=== PATIENT | male | born 1990 | race Caucasian/White ===

== ENCOUNTER 2018-05-15 19:23 | Emergency (ER) | payer MEDICAID, SELFPAY ==
[2018-05-15 19:24] VITALS: BP 126/76; PULSE 106; RESP 16; TEMP 37; O2SAT 100; BMI 21.1
--- NOTE | 2018-05-15 19:30 | RAD_ITS ---
STUDY: X-RAY - LEFT KNEE REASON FOR EXAM: Male, 28 years old. Left knee pain status post fall TECHNIQUE: 4 view(s) of the knee. COMPARISON: None. FINDINGS: Normal visualized distal femur. Normal visualized proximal tibia and fibula. Normal proximal tibiofibular articulation. Normal medial femorotibial compartment. Normal lateral femorotibial compartment. Normal patellofemoral articulation. The soft tissue structures are unremarkable. RAD/Knee 4 or More Views IMPRESSION: Normal x-ray examination of the knee. Electronically Signed: Obinna Erickson MD at 19:55 EST , Service support ,
--- NOTE | 2018-05-15 20:18 | ED.DCSUM_ITS ---
- ER Visit Summary Date of Service: 05/15/18 Chief Complaint: Knee pain History of Present Illness: The patient is a 28 M with left knee pain. He stepped down from a curb and felt something pop in his left knee. Complains of anterior knee pain. No other injuries or complaints. Physical Examination: Anterior tenderness to left knee. No laxity or deformity. Good extension. Neurovascular intact distally. Skin appears normal. Test Results: X-rays negative. Emergency Department Course and Treatment: Patient has a knee sprain. Treated with anti-inflammatories, ice, crutches. Follow-up with primary care. Treatment Plan: As above Disposition: Discharge Impression: 1. Left knee sprain This note was generated with [employer] dictation software. It may contain incorrect words, spelling, and punctuation that were not noted in review of the chart prior to signing ED Disposition - Plan for ED Patient: Chief Complaint: Lower Extremity Injury Referrals: NOT,DEFINED [Primary Care Provider] -
--- NOTE | 2018-05-15 20:19 | ED.DEP ---
ED Disposition - Plan for ED Patient: Chief Complaint: Lower Extremity Injury Instructions: ED Sprain Knee Prescriptions: Naproxen [Naprosyn] 500 mg PO BID PRN #20 tab Referrals: Margarito Herron MD [STAFF PHYSICIAN] - As Needed
[2018-05-15] MEDS: Naproxen 500 MG Tablet PO (20:48)
--- OUTSIDE RECORDS SUMMARY | 2018-07-20 17:08 | XMS RPT_ITS ---
:1990 Author Organization [facility] Care Team Providers Name Role Phone Nathen Srinivasan Attending Unavailable Primay Care Physicia, No Primary Care Unavailable PROBLEMS PROBLEMS No Problem Records FoundPROCEDURES PROCEDURES No Procedure Records FoundRESULTS RESULTS EMERGENCY DEPARTMENT Observed: 05/15/2018 Status: F Source: [place] SUMMARY 11:50 PM [facility] REPOSITORY [facility] Medical Records Department [address] [place] [address] Emergency Department Summary 05/15/182017 MR#: [id number] Acct: [id number] Name: MESERET PIERRE Rep #: [id number] : 1990 28 From: Nathen Srinivasan MD PCP: Care Physician, No Primary Status: DEP ER - ER Visit Summary Date of Service: 05/15/18 Chief Complaint: Knee pain History of Present Illness: The patient is a 28 M with left knee pain. He stepped down from a curb and felt something pop in his left knee. Complains of anterior knee pain. No other injuries or complaints. Physical Examination: Anterior tenderness to left knee. No laxity or deformity. Good extension. Neurovascular intact distally. Skin appears normal. Test Results: X-rays negative. Emergency Department Course and Treatment: Patient has a knee sprain. Treated with anti-inflammatories, ice, crutches. Follow-up with primary care. Treatment Plan: As above Disposition: Discharge Impression: 1. Left knee sprain This note was generated with [employer] dictation software. It may contain incorrect words, spelling, and punctuation that were not noted in review of the chart prior to signing ED Disposition - Plan for ED Patient: Chief Complaint: Lower Extremity Injury Referrals: NOT,DEFINED [Primary Care Provider] - What to do if you have Problems For any increased pain, shortness of breath, bleeding, nausea or vomiting, chest pain, or any unexpected problems, contact your Primary Care Provider. Call [facility] ([phone]) or report to the closest Emergency Room. Call 911 if necessary. 05/15/182349 <Electronically signed by Nathen Srinivasan MD> Date Nathen Srinivasan MD Cosigner Signature (If Indicated): Date CC: No Primary Care Physician DISCHARGE INSTRUCTION Observed: 05/15/2018 Status: F Source: [place] 11:50 PM [facility] REPOSITORY [facility] Medical Records Department [address] [place] [address] Discharge Instruction 05/15/182018 MR#: [id number] Acct: [id number] Name: MESERET PIERRE Rep #: [id number] : 1990 28 From: Nathen Srinivasan MD PCP: Care Physician, No Primary Status: DEP ER ED Disposition - Plan for ED Patient: Chief Complaint: Lower Extremity Injury Instructions: ED Sprain Knee Prescriptions: Naproxen [Naprosyn] 500 mg PO BID PRN #20 tab Referrals: Margarito Herron MD [STAFF PHYSICIAN] - As Needed What to do if you have Problems For any increased pain, shortness of breath, bleeding, nausea or vomiting, chest pain, or any unexpected problems, contact your Primary Care Provider. Call [facility] ([phone]) or report to the closest Emergency Room. Call 911 if necessary. 05/15/182349 <Electronically signed by Nathen Srinivasan MD> Date Nathen Srinivasan MD Cosigner Signature (If Indicated): Date CC: No Primary Care Physician KNEE 4 OR MORE Observed: 05/15/2018 Status: F Source: [place] VIEWS 7:29 PM [facility] REPOSITORY [facility] Imaging Services [address] [place] [address] Knee 4 or More Views MR#: [id number] Acct: [id number] Name: MESERET PIERRE Rep #: [id number] : 1990 M 28 From: Obinna Erickson MD PCP: NOT, DEFINED Status: PRE ER Study: Knee 4 or More Views Date of Exam: 05/15/18 Exam# [id number] Ordering Dr: Nathen Srinivasan MD STUDY: X-RAY - LEFT KNEE REASON FOR EXAM: Male, 28 years old. Left knee pain status post fall TECHNIQUE: 4 view(s) of the knee. COMPARISON: None. FINDINGS: Normal visualized distal femur. Normal visualized proximal tibia and fibula. Normal proximal tibiofibular articulation. Normal medial femorotibial compartment. Normal lateral femorotibial compartment. Normal patellofemoral articulation. The soft tissue structures are unremarkable. RAD/Knee 4 or More Views IMPRESSION: Normal x-ray examination of the knee. Electronically Signed: Obinna Erickson MD at 19:55 EST , Service support , CC: DEFINED NOT; Nathen Srinivasan MD Rn Testing: Signed ALLERGIES ALLERGIES DATE TYPE / CODE NAME / CODE REACTION SEVERITY SOURCE 05/15/2018 Drug No Known Unknown [facility] Allergy/4160 Allergies/F00 [facility] [address](SNOMED [id number](RXNOR Repository CT) M) ENCOUNTERS ENCOUNTERS ADMIT/DISCHARGE ACCOUNT ADMITTING ENCOUNTER LOCATION SOURCE NUMBER CLASS 05/15/2018/ [id number] Emergency Myra [place] [facility] ing:ED Repository PAYERS PAYERS ENCOUNTER GUARANTOR PAYER SUBSCRIBER SOURCE 05/15/2018 [place] Primary MESERET Renteria DILDINESALVATION Insurance:[facility] DILDINEDOB: [facility] [facility] [phone] Number: Repository [id number]: [phone] [phone] () Date:[id number] [id number]: 05/15/2018 Secondary NOT GIVENUNK [place] Insurance:SELF PAY [facility] Number: Effective Repository Date:2018-05-15
== END 2018-05-15 20:54 | disposition home or self-care (01) ==
LOC: ED 20:34
PROVIDERS: Emergency Provider Emergency Medicine
DX: S83.92XA Sprain of unspecified site of left knee, initial encounter (principal); X58.XXXA Exposure to other specified factors, initial encounter; Y93.01 Activity, walking, marching and hiking; Y92.89 Other specified places as the place of occurrence of the external cause; Y99.8 Other external cause status
CPT/HCPCS: 73564; 99284

== ENCOUNTER 2021-12-01 14:00 | Emergency (ER) | payer MEDICARE, MEDICAID, SELFPAY ==
[2021-12-01 14:01] VITALS: BP 123/88; PULSE 101; RESP 13; TEMP 36.9; O2SAT 97; BMI 25.9
--- NOTE | 2021-12-01 14:02 | EKG12_ITS ---
Test Reason : overdose Blood Pressure : / mmHG Vent. Rate : 098 BPM Atrial Rate : 098 BPM P-R Int : 130 ms QRS Dur : 088 ms QT Int : 358 ms P-R-T Axes : 050 042 013 degrees QTc Int : 457 ms Normal sinus rhythm Nonspecific T wave abnormality Abnormal ECG Confirmed by CLARE PACKER, SIMONE ([id number]), script editor JENNIFER DE LA CRUZ ([id number]) on 12/05/2021 11:23:42 AM Referred By: Luiz Confirmed By:SIMONE SPARKS MD
--- NOTE | 2021-12-01 14:05 | ED.RN ---
NO OLD EKGS TO BE OBTAINED
--- NOTE | 2021-12-01 14:07 | EX.ED.DYSGE1 ---
HPI History of Present Illness Chief Complaint: Overdose Informant: patient Narrative Narrative: 31-year-old male was found on the ground in a park bench. Reportedly bystanders were doing CPR. They administered 2 doses of nasal Narcan and bagged respirations. He was tachycardic but not breathing on their arrival. IV was established and the patient received IV Narcan which resulted in him waking up. Patient states that he currently feels fine. He states he does not have any shortness of breath or chest pain. He notes a history of autism but otherwise states that he has no medical issues. [facility] Medical History (Updated 12/01/21 @ 14:[address] Nathen Tucker, ) Autism Home Medications naloxone 4 mg/actuation nasal spray (Narcan) 4 mg intranasal Q3M PRN opioid overdose #2 ea 12/01/21 [Rx Last Taken Unknown] Allergy/AdvReac Type Severity Reaction Status Date / Time No Known Allergies Allergy Verified 12/01/21 14:18 Surgical History (Updated 12/01/21 @ 14:06 by Shirley Mcfarland) History of elbow surgery Social History (Updated 12/01/21 @ 14:[address] Nathen Tucker, ) Smoking Status: Never smoker substance use type: opiates ROS ROS ED Constitutional Constitutional ED: Denies chills or weight loss Eyes Eyes: Denies change in vision or diplopia ENT ENT ED: Denies ear pain, rhinorrhea or sore throat Cardiovascular Cardiovascular: Denies chest pain, orthopnea, palpitations or racing heartbeat Respiratory/Chest Respiratory/Chest: Denies cough, dyspnea or orthopnea Gastrointestinal Gastrointestinal: Denies abdominal pain, diarrhea, nausea or vomiting Genitourinary Genitourinary ED: Denies dysuria, hematuria or urinary frequency Musculoskeletal Musculoskeletal: Denies arthralgias or myalgias Integumentary Denies abscess or rash Neurologic Neurologic: Denies headache(s) or weakness Psychiatric Psychiatric: Denies anxiety, depression, suicidal ideation or suicidal thoughts Endocrine Endocrinology: Denies polydipsia, polyphagia or polyuria Allergic/Immunologic Allergic/Immunologic ED: Denies mouth swelling, tongue swelling or urticaria EXAM Physical Exam Const Vital Signs: 12/01/21 14:01 12/01/21 15:08 12/01/21 16:26 Temperature 98.4 F Temperature Source Temporal Pulse Rate 101 H 99 84 Respiratory Rate 13 15 20 H Blood Pressure 123/88 H 138/86 H 108/58 L Blood Pressure Mean 99 103 74 Pulse Ox 97 97 99 Oxygen Delivery Method Room Air Room Air Room Air Positive well nourished and well developed General Appearance ED: well developed HEENT Reports normocephalic, head/scalp atraumatic and moist mucous membranes Eyes PERRL and EOMs intact bilaterally Neck no lymphadenopathy, supple and no JVD Resp normal respiratory effort and clear to auscultation bilaterally Cardio regular rhythm and no murmurs Rate: tachycardic GI normal to inspection, nondistended, normoactive bowel sounds and non-tender Palpation: soft Back/Spine no CVA tenderness and normal ROM Extremity normal to inspection General Extremety ED: Negative for edema General Extremity: Negative for edema Neuro oriented x3 and CN's II-XII intact bilaterally Sensorium / Orientation: alert Motor Exam: strength 5/5 throughout Psych mental status grossly normal Mood & Affect: Negative for depressed or tearful Skin no rashes or lesions noted and no wounds Skin Narrative: Diaphoretic MDM MDM Lab Data Attestation: I reviewed the patient's lab results. Lab results narrative: My interpretation of the chest x-ray is no acute process. No pneumothorax broken ribs noted. EKG is a normal sinus rhythm. Patient has been contemplating asking for inpatient rehab to the [facility] program. Therefore medical clearance labs were obtained. Unfortunately the patient does not wish to stay for detox stating that he cannot imagine being away from his phone for 3 days. States he is going to go home and think about it. I will prescribe him Narcan and refer him to [facility]. Labs: Laboratory Results - last 24 hr 12/01/21 12/01/21 12/01/21 14:13 14:13 14:13 WBC 9.9 RBC 4.49 L Hgb 13.0 Hct 39.4 L MCV 87.8 MCH 29.0 MCHC 33.0 RDW Std Deviation 41.1 RDW Coeff of Merlene 12.8 Plt Count 282 MPV 10.2 Immature Gran % (Auto) 0.300 Neut % (Auto) 60.9 Lymph % (Auto) 27.2 Irion % (Auto) 7.8 Eos % (Auto) 3.4 Baso % (Auto) 0.4 Absolute Neuts (auto) 6.0 Absolute Lymphs (auto) 2.69 Nucleated RBC % 0 Sodium 139 Potassium 3.1 L Chloride 103 Carbon Dioxide 28.0 Anion Gap 8 BUN 24 H Creatinine 1.21 Estim Creat Clear Calc 81.18 Est GFR (MDRD) Af Amer 89 Est GFR (MDRD) Non-Af 73 BUN/Creatinine Ratio 19.8 Glucose 206 H Calcium 8.5 Total Bilirubin 1.10 H AST 42 H ALT 28 Alkaline Phosphatase 80 Total Protein 7.3 Albumin 3.8 Globulin 3.5 Albumin/Globulin Ratio 1.1 Ur Drug Screen Comment Ethyl Alcohol < 3.0 12/01/21 15:15 WBC RBC Hgb Hct MCV MCH MCHC RDW Std Deviation RDW Coeff of Merlene Plt Count MPV Immature Gran % (Auto) Neut % (Auto) Lymph % (Auto) Irion % (Auto) Eos % (Auto) Baso % (Auto) Absolute Neuts (auto) Absolute Lymphs (auto) Nucleated RBC % Sodium Potassium Chloride Carbon Dioxide Anion Gap BUN Creatinine Estim Creat Clear Calc Est GFR (MDRD) Af Amer Est GFR (MDRD) Non-Af BUN/Creatinine Ratio Glucose Calcium Total Bilirubin AST ALT Alkaline Phosphatase Total Protein Albumin Globulin Albumin/Globulin Ratio Ur Drug Screen Comment Ethyl Alcohol Radiography Diagnostic Testing: Clinical Impression(s) from Imaging Studies Chest X-Ray 12/01/21 14:15 IMPRESSION: No radiographic evidence of acute cardiopulmonary disease. Electronically Signed: Jm Welsh MD at 14:53 EDT Reading Location ID and State: [address] [place] [address] Tel , Service support , EKG Initial EKG: Attestation: I personally reviewed and interpreted this EKG as follows: Comments: Normal sinus rhythm with rate of 98 bpm Discharge Plan Triage Chief Complaint: Overdose ED Provider: Nathen Tucker Dx/Rx/DC Orders Clinical Impression: Opiate overdose, Opiate addiction Instructions: ED Opiate Abuse, ED Overdose, Opiate Prescriptions: New naloxone [Narcan] 4 mg/actuation spray,non-aerosol 4 mg intranasal Q3M PRN (Reason: opioid overdose) Qty: 2 0RF Rx Instructions: spray 1 dose into ONE nostril; alternate nostrils w each dose until help arrives Primary Care Provider: Care Physician,No Primary Referrals: Care Physician,No Primary [Primary Care Provider] - [facility] [NON-STAFF] - As soon as possible (for detox program) Disposition Disposition: Home, Self Care
--- NOTE | 2021-12-01 14:15 | RAD_ITS ---
INDICATION: unresponsive EXAMINATION/TECHNIQUE: X-RAY - XR Chest 1 View COMPARISON: None. FINDINGS: LINES/DEVICES: None. LUNGS: No consolidation, edema or effusion. No pneumothorax. MEDIASTINUM AND CARDIOVASCULAR STRUCTURES: Cardiac silhouette not enlarged. Central airways and mediastinal contour are unremarkable. BONES AND SOFT TISSUES: Unremarkable. RAD/Chest 1 View (Portable) IMPRESSION: No radiographic evidence of acute cardiopulmonary disease. Electronically Signed: Jm Welsh MD at 14:53 EDT ,
--- NOTE | 2021-12-01 14:18 | ED.RN ---
THIS RN DISCUSSES WITH PATIENT HIS CONDITION WHEN FOUND AND HIS ABILITY TO OPT I N TO A HOSPITAL RAMP PROGRAM
[2021-12-01 14:58] LABS: Absolute Lymphocyte Count 2.69 X10^3/uL (0.83-4.51); Basophil# 0.04 X10^3/uL; Basophil% 0.4 % (0-1); Eosinophil# 0.34 X10^3/uL; Eosinophils% 3.4 % (0-5); Hematocrit 39.4 % (40-54); Lymphocyte # 2.69 X10^3/ul (0.83-4.51); Lymphocyte % 27.2 % (19-41); Mean Corpuscular Volume 87.8 fL (80-94); Mean Platelet Vol. 10.2 fl (6.2-12.0); Monocyte# 0.77 X10^3/uL; Monocyte% 7.8 % (0-10); NRBC Flagged by Analyzer 0 % (0-5); Neutrophil # 6.02 X10^3/uL (2.7-7.7); Neutrophil % 60.9 % (47-70); Platelet Count 282 K/mm3 (150-450); RBC Distribution Width CV 12.8 % (11.6-14.6); RBC Distribution Width SD 41.1 fl (35.1-43.9); Red Blood Count 4.49 M/mm3 (4.6-6.2); White Blood Count 9.9 K/mm3 (4.4-11.0)
[2021-12-01 15:08] VITALS: BP 138/86; PULSE 99; RESP 15; O2SAT 97
[2021-12-01 15:16] LABS: ALB/GLOB Ratio 1.1 RATIO (0.9-2.4); AST(SGOT) 42 U/L (15-37); Alanine Aminotransfer ALT/SGPT 28 U/L (16-61); Albumin, Serum 3.8 g/dL (3.2-5.0); Alkaline Phosphatase 80 U/L (45-117); Anion Gap 8 (5-15); BUN 24 mg/dL (7-18); BUN/Creat Ratio 19.8 RATIO (10-20); Calcium,Total 8.5 mg/dL (8.5-10.1); Chloride 103 mmol/L (98-107); Creatinine, Serum 1.21 mg/dL (0.70-1.30); EST Glomerular Filtration Rate 73 mL/min (>60); Est Glom Filt Rate - Afr Amer 89 mL/min (>60); Estimated Creatinine Clearance 81.18 ml/min; Globulin 3.5 g/dL (2.2-4.2); Glucose 206 mg/dL (74-106); Potassium 3.1 mmol/L (3.5-5.1); Protein, Total 7.3 g/dL (6.4-8.2); Sodium Level 139 mmol/L (136-145)
[2021-12-01] MEDS: 0.9% Normal Saline 1,000 ML 1000 ML IV (15:28)
[2021-12-01 16:22] LABS: Alcohol, Blood (Medical)-Serum < 3.0 mg/dL
[2021-12-01 16:26] VITALS: BP 108/58; PULSE 84; RESP 20; O2SAT 99
[2021-12-01 16:32] LABS: Amphetamine Urine VISTA POSITIVE (<1000 ng/mL); Barbiturate Urine VISTA NEGATIVE (< 200 ng/mL); Benzodiazepine Urine VISTA NEGATIVE (< 200 ng/mL); Cocaine Urine VISTA NEGATIVE (< 300 ng/mL); Ecstacy Urine VISTA NEGATIVE (< 500 ng/mL); Methadone Urine VISTA NEGATIVE (< 300 ng/mL); PCP Urine VISTA NEGATIVE (< 25 ng/mL); THC Urine VISTA NEGATIVE (< 50 ng/mL); Vista UDS pH Range 6
[2021-12-01 16:40] VITALS: BP 167/74; PULSE 72; RESP 15; O2SAT 98
== END 2021-12-01 16:40 | disposition home or self-care (01) ==
PROVIDERS: Emergency Provider Emergency Medicine; Visit Provider Emergency Medicine
DX: T40.2X4A Poisoning by other opioids, undetermined, initial encounter (principal); R00.0 Tachycardia, unspecified; F84.0 Autistic disorder
CPT/HCPCS: 71045; 80053; 80307; 82077; 85025; 93005; 99285; A4216

== ENCOUNTER → 2022-08-23 | Outpatient (CLI) | payer MEDICARE, MEDICAID, SELFPAY ==
[2022-08-23 08:57] LABS: Vitamin D,25 Hydroxy 27.2 ng/mL
[2022-08-23 09:00] LABS: ALB/GLOB Ratio 1.1 RATIO (0.9-2.4); AST(SGOT) 22 U/L (15-37); Alanine Aminotransfer ALT/SGPT 39 U/L (16-61); Alkaline Phosphatase 76 U/L (45-117); Anion Gap 3 (5-15); BUN 17 mg/dL (7-18); BUN/Creat Ratio 15.3 RATIO (10-20); Calcium,Total 9.1 mg/dL (8.5-10.1); Chloride 106 mmol/L (98-107); Cholesterol 240 mg/dL (200); Creatinine, Serum 1.11 mg/dL (0.70-1.30); EST Glomerular Filtration Rate 80 mL/min (>60); Est Glom Filt Rate - Afr Amer 97 mL/min (>60); Globulin 3.8 g/dL (2.2-4.2); Glucose 101 mg/dL (74-106); High Density Lipoprotein 42 mg/dL; Potassium 3.8 mmol/L (3.5-5.1); Protein, Total 7.8 g/dL (6.4-8.2); Sodium Level 137 mmol/L (136-145); Thyroid Stim Hormone (TSH) 1.31 uIU/mL (0.358-3.74); Triglycerides 198 mg/dL; Very Low Density Lipoprotein 40 mg/dL (5-40)
== END | disposition home or self-care (01) ==
PROVIDERS: PCP Internal Medicine; Referring Provider Internal Medicine; Visit Provider Internal Medicine
DX: Z00.00 Encounter for general adult medical examination without abnormal findings (principal); F84.5 Asperger's syndrome; F90.9 Attention-deficit hyperactivity disorder, unspecified type; Z13.220 Encounter for screening for lipoid disorders; E55.9 Vitamin D deficiency, unspecified
CPT/HCPCS: 36415; 80053; 80061; 82306; 84443

== ENCOUNTER → 2023-11-27 | Outpatient (CLI) | payer MEDICARE, MEDICAID, SELFPAY ==
[2023-11-27 08:48] LABS: Absolute Lymphocyte Count 3.12 X10^3/uL (0.83-4.51); Absolute Neutrophil Count 4.8 X10^3/uL (2.0-7.7); Basophil# 0.05 X10^3/uL; Basophil% 0.6 % (0-1); Eosinophil# 0.09 X10^3/uL; Hematocrit 43.2 % (40-54); Hemoglobin 14.2 g/dL (13.0-16.5); Lymphocyte # 3.12 X10^3/ul (0.83-4.51); Lymphocyte % 35.1 % (19-41); Mean Corp Hgb Conc 32.9 g/dL (32-36); Mean Corpuscular Hgb 27.9 pg (27.0-32.0); Mean Corpuscular Volume 84.9 fL (80-94); Mean Platelet Vol. 10.4 fl (6.2-12.0); Monocyte# 0.81 X10^3/uL; Monocyte% 9.1 % (0-10); NRBC Flagged by Analyzer 0 % (0-5); Neutrophil # 4.78 X10^3/uL (2.7-7.7); Neutrophil % 53.9 % (47-70); Platelet Count 277 K/mm3 (150-450); RBC Distribution Width CV 12.7 % (11.6-14.6); RBC Distribution Width SD 39.4 fl (35.1-43.9); Red Blood Count 5.09 M/mm3 (4.6-6.2); White Blood Count 8.9 K/mm3 (4.4-11.0)
[2023-11-27 09:26] LABS: Hemoglobin A1c 6.1 % (3.8-5.6)
[2023-11-27 09:37] LABS: ALB/GLOB Ratio 0.9 RATIO (0.9-2.4); AST(SGOT) 40 U/L (15-37); Alanine Aminotransfer ALT/SGPT 95 U/L (16-61); Albumin, Serum 3.7 g/dL (3.2-5.0); Alkaline Phosphatase 98 U/L (45-117); Anion Gap 7 (5-15); BUN 20 mg/dL (7-18); BUN/Creat Ratio 19.6 RATIO (10-20); Calcium,Total 9.1 mg/dL (8.5-10.1); Chloride 107 mmol/L (98-107); Cholesterol 253 mg/dL (200); Creatinine, Serum 1.02 mg/dL (0.70-1.30); EST Glomerular Filtration Rate 88 mL/min (>60); Est Glom Filt Rate - Afr Amer 107 mL/min (>60); Globulin 4.3 g/dL (2.2-4.2); Glucose 123 mg/dL (74-106); High Density Lipoprotein 41 mg/dL; Potassium 3.9 mmol/L (3.5-5.1); Sodium Level 138 mmol/L (136-145); Triglycerides 152 mg/dL; Very Low Density Lipoprotein 30 mg/dL (5-40)
[2023-11-27 10:48] LABS: Vitamin D,25 Hydroxy 25.5 ng/mL
[2023-11-28 08:12] LABS: Insulin Level 40.8 uIU/mL (2.6-24.9)
== END | disposition home or self-care (01) ==
LOC: LAB 07:30
PROVIDERS: PCP Internal Medicine; Referring Provider Internal Medicine; Visit Provider Internal Medicine
DX: E88.819 Insulin resistance, unspecified (principal); E11.69 Type 2 diabetes mellitus with other specified complication; E55.9 Vitamin D deficiency, unspecified; E78.5 Hyperlipidemia, unspecified; F84.5 Asperger's syndrome; Z13.220 Encounter for screening for lipoid disorders
CPT/HCPCS: 36415; 80053; 80061; 82306; 83036; 83525; 85025

== ENCOUNTER → 2023-12-11 | Outpatient (CLI) | payer MEDICARE, MEDICAID, SELFPAY ==
--- NOTE | 2023-12-11 07:15 | US_ITS ---
STUDY: ABDOMINAL ULTRASOUND - RIGHT UPPER QUADRANT REASON FOR VISIT: Male, 33 years old Elevated FTs TECHNIQUE: Ultrasound evaluation of the right upper quadrant was performed with real-time and static kerr-scale imaging. TECHNICAL QUALITY: Adequate. COMPARISON: None. FINDINGS: Liver: The liver measures 18.1 cm. There is increased echogenicity consistent with fatty infiltration. The bile ducts are within normal limits. There is hepatic color flow. The direction of portal flow is hepatopetal. There is no demonstrated mass lesion. Gallbladder: Normal distended gallbladder. The gallbladder wall measures 2 mm. There is a negative sonographic Kim''s sign. There is no pericholecystic fluid. There are no gallstones. Common Bile Duct (C.B.D.): The common bile duct measures 4 mm. Pancreas: There is nonvisualization of the pancreas.. Right Kidney: Normal size of the right kidney. The right kidney measures 12.4 cm. Normal renal cortex. The right cortex measures 1.6 cm. There is no demonstrated renal mass or cyst. There is no right hydronephrosis. US/Liver IMPRESSION: Fatty infiltration of the liver. Electronically Signed: Sinan Buchanan MD at 13:57 EDT ,
== END | disposition home or self-care (01) ==
LOC: US 07:15
PROVIDERS: PCP Internal Medicine; Referring Provider Internal Medicine; Visit Provider Internal Medicine
DX: R79.89 Other specified abnormal findings of blood chemistry (principal)
CPT/HCPCS: 76705

== ENCOUNTER → 2024-03-10 | Outpatient (CLI) | payer MEDICARE, MEDICAID, SELFPAY ==
[2024-03-10 10:21] LABS: ALB/GLOB Ratio 0.9 RATIO (0.9-2.4); AST(SGOT) 46 U/L (15-37); Alanine Aminotransfer ALT/SGPT 118 U/L (16-61); Albumin, Serum 3.8 g/dL (3.2-5.0); Alkaline Phosphatase 90 U/L (45-117); Anion Gap 7 (5-15); BUN 20 mg/dL (7-18); BUN/Creat Ratio 17.1 RATIO (10-20); Calcium,Total 9.6 mg/dL (8.5-10.1); Chloride 105 mmol/L (98-107); Creatinine, Serum 1.17 mg/dL (0.70-1.30); EST Glomerular Filtration Rate 75 mL/min (>60); Est Glom Filt Rate - Afr Amer 91 mL/min (>60); Globulin 4.1 g/dL (2.2-4.2); Glucose 121 mg/dL (74-106); Potassium 4.1 mmol/L (3.5-5.1); Protein, Total 7.9 g/dL (6.4-8.2); Sodium Level 139 mmol/L (136-145)
[2024-03-10 10:33] LABS: Hemoglobin A1c 6.2 % (3.8-5.6)
[2024-03-11 05:07] LABS: Insulin Level 40.5 uIU/mL (2.6-24.9)
== END | disposition home or self-care (01) ==
PROVIDERS: PCP Internal Medicine; Referring Provider Internal Medicine; Visit Provider Internal Medicine
DX: R73.9 Hyperglycemia, unspecified (principal); E88.819 Insulin resistance, unspecified
CPT/HCPCS: 36415; 80053; 83036; 83525

== ENCOUNTER → 2024-11-19 | Outpatient (CLI) | payer MEDICARE, MEDICAID, SELFPAY ==
--- OUTSIDE RECORDS SUMMARY | 2024-11-19 08:10 | XMS RPT_ITS | CCD ---
Demographics Address [address] [place] [address] Preferred Language en Marital Status Single Taoism Affiliation Unknown Race White Ethnic Group Not or Lati no Author Organization [facility] Care Team Providers Care Supervisor [employer] Name Role Phone Care Physician, No Primary Primary Care Provider Unavailable Delbert Marrero Attending Provider Unavailable Dr. El Valdes Attending Provider El Valdes MD Primary Care Provider EL VALDES Primary Care Unavailable Dr. El Valdes MD Primary Care Provider [phone] Dr. El Valdes MD Attending Provider El Valdes Primary Care Unavailable El Valdes Attending Unavailable El Valdes Primary Care Unavailable El Valdes Attending Unavailable El Valdes Primary Care Unavailable El Valdes Attending Unavailable El Valdes Primary Care Unavailable El Valdes Attending Unavailable El Valdes Referring Unavailable El Valdes Primary Care Unavailable El Valdes Attending Unavailable El Valdes Referring Unavailable El Valdes Primary Care Unavailable El Valdes Attending Unavailable El Valdes Referring Unavailable Medications Current Medications Medication Drug Class(es) Dates Sig (Normalized) Sig (Original) acetaminophen 325 mg oral tablet (5 sources) Start: 08-16-2022 End: 08-11-2024 take 2 tablets by mouth every eight hours as needed for pain Acetaminophen 325 mg tablet Active 650 mg PO Q8H as needed for pain August 11, 2024 11:10am Start: 08-16-2022 take 650 mg by mouth every eight hours Acetaminophen Active 650 MG PO Q8H August 16, 2022 12:00am bismuth subsalicylate 17.5 mg/ml oral suspension (2 sources) Bismuth Start: 04-19-2023 Bismuth Subsalicylate (Pepto-Bismol) 262 mg/15 mL suspension Active 524 mg PO every 30 to 60 minutes as needed for diarrhea August 16, 2022 12:00am do not exceed 4 doses in a 24 hour period cetirizine hydrochloride 5 mg oral tablet (1 source) Histamine-1 Receptor Antagonist Start: 09-05-2024 take 1 tablet by mouth once daily as needed Cetirizine 5 mg tablet Active 5 mg PO daily as needed for allergy symptoms 60 September 05, 2024 12:00am cholecalciferol 0.025 mg oral capsule (2 sources) Vitamin D Start: 11-29-2023 End: 05-08-2024 take 1 capsule by mouth once daily Cholecalciferol (Vitamin D3) 25 mcg (1,000 unit) capsule Active 25 ug PO DAILY 90 May 08, 2024 5:36pm hydrocortisone 10 mg/ml topical cream (1 source) Corticosteroid Start: 03-13-2024 Hydrocortisone (Preparation H Hydrocortisone) 1 % cream Active 1 NMA TOPICAL THREE TIMES A DAY as needed for itching 28.35 March 13, 2024 1:00am Apply twice daily for 5 days to affected area. menthol 5.8 mg oral lozenge (1 source) Start: 07-09-2023 Menthol ([place] Cough Drops) 5.8 mg lozenge Active 5.8 mg MUCOUS MEM 3 to 4 times per day as needed for cough 30 July 09, 2023 12:00am [place]-3 Fatty Acids (2 sources) Start: 04-07-2024 take 1 capsule by mouth once daily [place]-3 Fatty Acids 1,250 mg capsule Active 2500 mg PO DAILY April 07, 2024 4:16pm Start: 10-03-2023 End: 04-07-2024 take 1 capsule by mouth once daily [place]-3 Fatty Acids 1,250 mg capsule Discontinued 3750 mg PO DAILY October 03, 2023 12:00am April 07, 2024 4:17pm oseltamivir 75 mg oral capsule (2 sources) Neuraminidase Inhibitor Start: 07-02-2023 End: 07-07-2023 take 1 capsule by mouth twice daily oseltamivir (TAMIFLU) 75 mg capsule Indications: Influenza B Take 1 capsule by mouth two times a day for 5 days. 10 capsule 0 07/02/2023 07/07/2023 Active Comment on above: Take 1 capsule by [facility] two times a day for 5 days. Completed/Discontinued Medications Medication Drug Class(es) Dates Sig (Normalized) Sig (Original) ARIPiprazole 20 mg oral tablet (2 sources) Atypical Antipsychotic take 1 tablet by mouth once daily aripiprazole (ABILIFY) 20 mg ORAL tablet Take 20 mg by mouth once daily. 0 Active Comment on above: Take 20 mg by mouth once daily. atomoxetine 40 mg oral capsule (2 sources) Norepinephrine Reuptake Inhibitor Start: 12-23-2010 take 1 capsule by mouth once daily atomoxetine (STRATTERA) 40 mg ORAL capsule Take 1 capsule by mouth once daily. 0 12/23/2010 Active Comment on above: Take 1 capsule by [facility] once daily. citalopram 20 mg oral tablet (2 sources) Serotonin Reuptake Inhibitor take 1 tablet by mouth once daily citalopram (CELEXA) 20 mg ORAL tablet Take 20 mg by mouth once daily. 0 Active Comment on above: Take 20 mg by mouth once daily. diphenhydrAMINE hydrochloride 25 mg oral tablet (2 sources) Histamine-1 Receptor Antagonist take 1 tablet by mouth every six hours as needed diphenhydrAMINE 25 mg ORAL tablet Take 25 mg by mouth every 6 hours as needed. 0 Active Comment on above: Take 25 mg by mouth every 6 hours as needed. Fish Oils (2 sources) Start: 08-07-2022 End: 10-03-2023 fish oil Discontinued PO August 07, 2022 12:00am October 03, 2023 9:09am 3 at hs ,doesn't know dose Start: 08-07-2022 fish oil Activ e PO August 07, 2022 12:00am 3 at hs ,doesn't know dose ibuprofen 200 mg oral capsule (2 sources) Nonsteroidal Anti-inflammatory Drug Ibuprofen 200 mg ORAL Cap Take by mouth. 0 Active Comment on above: Take by mouth. Naloxone (Narcan) 4 mg/actuation spray,non-aerosol (3 sources) Start: 12-01-2021 End: 08-16-2022 Naloxone (Narcan) 4 mg/actuation spray,non-aerosol Discontinued 4 mg INTRANASAL Q3M as needed for opioid overdose December 01, 2021 12:00am August 16, 2022 9:18am spray 1 dose into ONE nostril; alternate nostrils w each dose until help arrives Start: 12-01-2021 End: 08-16-2022 Naloxone (Narcan) 4 mg/actua tion spray,non-aerosol Discontinued 4 MG INTRANASAL Q3M 2 December 01, 2021 12:00am August 16, 2022 9:18am spray 1 dose into ONE nostril; alternate nostrils w each dose until help arrives Start: 12-01-2021 Naloxone (Narc an) 4 mg/actuation spray,non-aerosol Active 4 MG INTRANASAL Q3M 2 December 01, 2021 12:00am spray 1 dose into ONE nostril; alternate nostrils w each dose until help arrives zolpidem tartrate 10 mg oral tablet (2 sources) gamma-Aminobutyric Acid-ergic Agonist zolpidem (AMBIEN) 10 mg ORAL Tab Take by mouth at bedtime as needed. 0 Active Comment on above: Take by mouth at bed time as needed. Problems Active Problems Problem Classification Problem Date Documented Date Episodic/Chronic Attention-deficit, conduct, and disruptive behavior disorders (4 sources) Attention deficit hyperactivity disorder; Translations: [Attention-deficit hyperactivity disorder, unspecified type] 08-16-2022 Chronic Attention-deficit, conduct, and disruptive behavior disorders (1 source) Attention-deficit hyperactivity disorder, unspecified type; Translations: [Attention deficit disorder with hyperactivity] 08-16-2022 Chronic Diabetes mellitus without complication (1 source) Hyperglycemia, unspecified; Translations: [Hyperglycemia, unspecified] Onset: 10-15-2024 Episodic Disorders usually diagnosed in infancy, childhood, or adolescence (6 sources) Asperger's disorder; Translations: [Asperger's syndrome] Onset: 10-15-2024 08-16-2022 Chronic Epilepsy; convulsions (2 sources) Unspecified convulsions; Translations: [Other convulsions] 04-25-2021 Episodic Influenza (1 source) Influenza due to Influenza B virus; Translations: [Influenza due to other identified influenza virus with other respiratory manifestations] 07-02-2023 Episodic Nutritional deficiencies (1 source) Vitamin D deficiency, unspecified; Translations: [Vitamin D deficiency, unspecified] Onset: 10-15-2024 Chronic Other injuries and conditions due to external causes (1 source) Foreign body in auditory canal; Translations: [Foreign body in left ear, initial encounter] 08-16-2022 Episodic Other injuries and conditions due to external causes (2 sources) Foreign body in left ear, initial encounter; Translations: [Foreign body in ear] 08-16-2022 Episodic Other liver diseases (2 sources) Fatty (change of) liver, not elsewhere classified; Translations: [Metabolic dysfunction-associate d steatotic liver disease (MASLD)] Onset: 10-15-2024 12-20-2023 Chronic Other nutritional; endocrine; and metabolic disorders (1 source) Insulin resistance; Translations: [Insulin resistance] 10-03-2023 Chronic Other upper respiratory infections (1 source) Sore throat symptom; Translations: [Acute pharyngitis, unspecified] 07-02-2023 Episodic Poisoning by other medications and drugs (3 sources) Overdose of opiate; Translations: [Poisoning by unspecified narcotics, accidental (unintentional), initial encounter] 12-09-2021 Episodic Residual codes; unclassified (1 source) Viral syndrome; Translations: [Other general symptoms and signs] 07-02-2023 Episodic Schizophrenia and other psychotic disorders (2 sources) Schizoaffective disorder, bipolar type; Translations: [Schizoaffective disorder, bipolar type] 04-25-2021 Chronic Substance-related disorders (3 sources) Opioid dependence; Translations: [Opioid dependence, uncomplicated] 12-09-2021 Chronic Thyroid disorders (1 source) Hypothyroidism, unspecified; Translations: [Hypothyroidism, unspecified] Onset: 10-15-2024 Chronic Unclassified (1 source) Insulin resistance, unspecified; Translations: [Insulin resistance, unspecified] Onset: 10-15-2024 Past or Other Problems Problem Classification Problem Date Documented Da te Episodic/Chronic Hemorrhoids (2 sources) External hemorrhoids; Translations: [Residual hemorrhoidal skin tags] Onset: 04-02-2024 03-13-2024 Episodic Other screening for suspected conditions (not mental disorders or infectious disease) (2 sources) Other specified abnormal findings of blood chemistry; Translations: [Elevated liver function tests] Onset: 04-02-2024 11-28-2023 Episodic Results Test Name Value Interpretation Reference Range Facility /Aleena 10-15-2024 /MARY [facility] [address] [place] [address] [id number] OFFICE VISIT Date of Service: 10/15/24 MR#: [id number] Acct: [id number] Name: PAULO PIERRE Rep #: [id number] : 1990 Provider: Dr. El hernandez MD Age/Sex: 34/M Location: [facility] Status: Signed Intake Vital Signs 03/13/24 08:49 10/15/24 08:29 Height 5 ft 7 in 5 ft 7 in Weight: 250 lb 8 oz 256 lb 8 oz BMI 39.2 40.1 BP 143/84 H 106/74 Blood Pressure Location Rt brachial Rt brachial Position Sitting Sitting Respiration 16 16 Pulse 75 79 Pulse Source Monitor Monitor Temp 98.4 F 98.2 F Temp Source Temporal Temporal Pulse Oximetry (%) 95 93 Oxygen Delivery Method room air room air Intake Visit Reasons: Annual/Physical Chief Complaint: Annual/Physical Battery Vent Plug Inserter Required: No Accompanied by: Specification Consultant Is patient in pain?: No Allergies No Known Allergies Allergy (Verified 10/15/24 08:24) Medications ???Medication ???Instructions ???Recorded ???Confirmed ???Type bismuth subsalicylate 262 mg/15 mL 524 mg (30 mL) PO Q30-60M PRN 10/15/24 Rx oral suspension (Pepto-Bismol) diarrhea #500 mL menthol 5.8 mg lozenges ([place] 5.8 mg mucous membrane TID-QID PRN 07/09/23 10/15/24 Rx Cough Drops) cough #30 ea hydrocortisone 1 % topical cream 1 applic topical TID PRN itching 1 05/13/23 10/15/24 Rx (Preparation H Hydrocortisone) #28.35 grams omega-3 fatty acids 1,250 mg 2,500 mg (2 x 1,250 mg) PO DAILY 1 06/08/23 10/15/24 Rx capsule #180 caps cholecalciferol (vitamin D3) 25 25 mcg PO DAILY #90 caps 05/08/24 10/15/24 Rx mcg (1,000 unit) capsule acetaminophen 325 mg tablet 650 mg (2 x 325 mg) PO Q8H PRN 10/15/24 Rx pain #30 tabs cetirizine 5 mg tablet 5 mg PO QDAY PRN allergy symptoms 09/05/24 10/15/24 Rx #60 tabs PFSH Medical History Hemorrhoids, external Metabolic dysfunction-associated steatotic liver disease (MASLD) Elevated LFTs Opioid use disorder Asperger's disorder ADHD Vision problem Seizures Migraines Alcohol abuse Autism Surgical History [place] teeth extracted History of elbow surgery Family History Mother Alcoholism Father Alcoholism Grandmother Alcoholism Grandfather Arthritis Cancer Other Seizures Social History adopted: No household members: other details: halfway housing: house number of children: 0 current occupational status: employed and disabled current occupation: disability pets and animals: No leisure activities: music and other history of recent travel: No sexually active: No Smoking Status: Never smoker alcohol intake: former substance use type: opiates well-balanced diet: about half the time caffeine: Yes eating out: rarely or never during the past year weight has: remained stable what type of physical activity do you participate in: walking and yoga frequency: 1-2 times per week kandice/roman catholic: Atheist seatbelt use: sometimes do you feel safe at home: Yes HPI HPI Chief Complaint: Annual/Physical Details: PAULO PIERRE, is a 34 M who presents to the office today for annual follow-up. We have been seeing Jv on a 6-month basis, monitoring MA SLD, insulin resistance. He also has a history of Asperger's, ADHD but takes no routine long-term prescription-based medications. He is on vitamin D supplement for low vitamin D. Otherwise takes omega-3 fatty acids daily and has several as needed medications. He is in a halfway setting. Overall he states he is doing well. He does not have any specific concerns or issues and staff member who is here with him does not have any specific concerns today either. He is walking quite a bit, pretty much daily around town. He feels well. He does not have any concerns while out walking. Self-admittedly still consuming some poor quality foods, drinking some artificially sweetened beverages as well as sweetened beverages such as pop. I highly discourage and he has made good progress on it but still consuming some. Likewise processed carbohydrates. He is watching the "breads." He has underlying insulin resistance, obesity. A1c has been just about 6-6.2. He has mildly elevated liver enzymes and elevated insulin levels consistent with insulin resistance. Last visit noted several dental caries and he did get to the dentist, had a couple of extractions and has been doing fine since. Review of systems per chart. Physical exam. Vital signs on chart. Wears corrective lenses. PERRLA. Sclera are clear. TMs are unremarkable with normal light reflexes. Canals are unremarkable. (more content not included)... Normal [facility] MR/BMS.Patria 03-13-2024 MR/BMS.Dilshad [facility] [address] [facility] [place] [address] OFFICE VISIT Date of Service: 03/13/24 MR#: [id number] Acct: [id number] Name: PAULO PIERRE Rep #: [id number] : 1990 Provider: Dr. El hernandez MD Age/Sex: 33/M Location: [facility] Status: Signed Intake Vital Signs 12/20/23 10:49 03/13/24 08:49 Height 5 ft 7 in 5 ft 7 in Weight: 249 lb 250 lb 8 oz BMI 38.9 39.2 BP 120/81 H 143/84 H Blood Pressure Location Lt brachial Rt brachial Position Sitting Sitting Respiration 18 16 Pulse 84 75 Pulse Source Monitor Monitor Temp 98.6 F 98.4 F Temp Source Temporal Temporal Pulse Oximetry (%) 94 95 Oxygen Delivery Method room air room air Intake Visit Reasons: 3 M FU Chief Complaint: 3 m fu Battery Vent Plug Inserter Required: No Accompanied by: Self Is patient in pain?: No Allergies No Known Allergies Allergy (Verified 03/13/24 08:43) Medications ???Medication ???Instructions ???Recorded ???Confirmed ???Type bismuth subsalicylate 262 mg/15 mL 524 mg (30 mL) PO Q30-60M PRN 08/16/22 03/13/24 Rx oral suspension (Pepto-Bismol) diarrhea #500 mL menthol 5.8 mg lozenges ([place] 5.8 mg mucous membrane TID-QID PRN 07/09/23 03/13/24 Rx Cough Drops) cough #30 ea acetaminophen 325 mg tablet 650 mg (2 x 325 mg) PO Q8H PRN 08/01/23 03/13/24 Rx pain #30 tabs omega-3 fatty acids 1,250 mg 3,750 mg PO DAILY 10/03/23 03/13/24 History capsule cholecalciferol (vitamin D3) 25 25 mcg PO DAILY #90 caps 11/29/23 03/13/24 Rx mcg (1,000 unit) capsule hydrocortisone 1 % topical cream 1 applic topical TID PRN itching 03/13/24 03/13/24 Rx (Preparation H Hydrocortisone) #28.35 grams PFSH Medical History (Updated 03/13/24 @ 09:[address] El Valdes MD) Hemorrhoids, external Metabolic dysfunction-associated steatotic liver disease (MASLD) Elevated LFTs Opioid use disorder Asperger's disorder ADHD Vision problem Seizures Migraines Alcohol abuse Autism Surgical History [place] teeth extracted History of elbow surgery Family History Mother Alcoholism Father Alcoholism Grandmother Alcoholism Grandfather Arthritis Cancer Other Seizures Social History adopted: No household members: other details: halfway housing: house number of children: 0 current occupational status: employed and disabled current occupation: disability pets and animals: No leisure activities: music and other history of recent travel: No sexually active: No Smoking Status: Never smoker alcohol intake: former substance use type: opiates well-balanced diet: about half the time caffeine: Yes eating out: rarely or never during the past year weight has: remained stable what type of physical activity do you participate in: walking and yoga frequency: 1-2 times per week kandice/roman catholic: Atheist seatbelt use: sometimes do you feel safe at home: Yes HPI HPI Chief Complaint: 3 m fu Details: PAULO PIERRE, is a 33 M who presents to the office today for short-term follow-up. Had recent labs done. His LFTs did go up a little bit more, A1c is stable at 6.2. He has underlying insulin resistance, metabolic associated fatty liver disease. We spent a lot of time once again discussing dietary nutritional patterns. Trying to be as specific as possible about types of foods not to eat. Has a little bit of difficulties in comprehending more broad patterns to be doing but we did continually emphasized that today i.e. heavier on the vegetables, fruits versus highly processed foods, packaged foods etc. He is doing overall much better than he had for his past 30+ years of life, where he was pretty much eating anything and everything but basically all highly processed, lots of high fructose corn syrup, highly processed meats like [employer] etc., fast food etc. He is doing much better because he is now in the halfway so he has limited options for that but still does get a fair amount of highly processed grains in the form of bread, pasta, similar. I highly discouraged that at least in terms of trying to limit the amounts. Finally, acutely, he has by description a hemorrhoid. He has not had a problem in the past. He noticed a small lump, itching but not painful in the buttock area. He states he has bowel movements on a regular basis, generally once daily, but does a fair amount of straining and it has been his lifelong pattern. Review of systems per chart. Physical exam. Vital signs on chart. See my previous note for full exams. My brief exam today reveals a nonthrombosed external hemorrhoid, at the 9 o'clock position. This easily reduces however full recta (more content not included)... Normal [facility] Insulin Levelon 03-11-2024 INSULIN,FASTING 40.5 uIU/mL High 2.6-24.9 [facility] Comment on above: Result Comment: Perf ormed at: CB - [facility] [address] [id number] Specification Consultant: Uriel Roger PhD, Phone: [phone] Performed By: #### L 7048.9821, D582.7271, D663.6056 #### [facility] [place], [address] Comprehensive Metabolic Prof petey 03-10-2024 Albumin [Mass/Vol] 3.8 g/dL Normal 3.2-5.0 [facility] Comment on above: Performed By: #### L 3300.3500, L500.4050, [id number] #### [facility] [address] [place], [address] Albumin/Globulin [Mass ratio] 0.9 {ratio} Normal 0.9-2.4 [facility] Comment on above: Performed By: #### L 3300.3500, L500.4050, [id number] #### [facility] [address] [place], [address] ALK P 90 U/L Normal 45-117 [facility] Comment on above: Performed By: #### L 3300.3500, [id number], [id number] #### [facility] [address] [place], [address] ALT [Catalytic activity/Vol] 118 U/L High 16-61 [facility] Comment on above: Performed By: #### L 3300.3500, [id number], [id number] #### [facility] [address] [place], [address] AST [Catalytic activity/Vol] 46 U/L High 15-37 [facility] Comment on above: Performed By: #### L 3300.3500, [id number], [id number] #### [facility] [address] [place], [address] Bilirubin [Mass/Vol] 0.80 mg/dL Normal 0.20-1.00 [facility] Comment on above: Result Comment: For patients on eltrombopag therapy, use of Dimension Balm TBIL is not recommended. Performed By: #### L 3300.3500, L500.4050, [id number] #### [facility] [address] [place], [address] BUN/CRE 17.1 RATIO Normal 10-20 [facility] Comment on above: Performed By: #### L 3300.3500, [id number], [id number] #### [facility] [address] [place], [address] CA,Total 9.6 mg/dL Normal 8.5-10.1 [facility] Comment on above: Performed By: #### L 3300.3500, [id number], [id number] #### [facility] [address] [place], [address] Chloride [Moles/Vol] 105 mmol/L Normal 98-107 [facility] Comment on above: Performed By: #### L 3300.3500, [id number], [id number] #### [facility] [address] [place], [address] CO2 [Moles/Vol] 27.0 mmol/L Normal 21.0-32.0 [facility] Comment on above: Performed By: #### L 3300.3500, [id number], [id number] #### [facility] [address] [place], [address] Creatinine [Mass/Vol] 1.17 mg/dL Normal 0.70-1.30 [facility] Comment on above: Result Comment: The validity of the calculated GFR GFRAA in patients over 70 years has not been determined. Clinical correlation is essential. Performed By: #### L 3300.3500, L500.4050, [id number] #### [facility] [address] [place], [address] EST GFR - AA 91 mL/min Normal >60 [facility] Comment on above: Result Comment: Afri can [place] GFR Calc Performed By: #### L 3300.3500, [id number], [id number] #### [facility] [address] [place], [address] GAP 7 Normal 5-15 [facility] Comment on above: Performed By: #### L 3300.3500, [id number], [id number] #### [facility] [address] [place], [address] GFR/1.73 sq M.predicted among non-blacks MDRD (S/P/Bld) [Vol rate/Area] 75 mL/min/{1.73_m2} Normal >60 [facility] Comment on above: Result Comment: Non- GFR Calc Performed By: #### L 3300.3500, L500.4050, [id number] #### [facility] [address] [place], [address] Globulin (S) [Mass/Vol] 4.1 g/dL Normal 2.2-4.2 [facility] Comment on above: Performed By: #### L 3300.3500, [id number], [id number] #### [facility] [address] [place], [address] Glucose [Mass/Vol] 121 mg/dL High 74-106 [facility] Comment on above: Result Comment: Fast ing Glucose result from 100 to 125 mg/dL suggests IMPAIRED HOMEOSTASIS per A.D.A. criteria. Performed By: #### L 3300.3500, L500.4050, [id number] #### [facility] [address] [place], [address] Potassium [Moles/Vol] 4.1 mmol/L Normal 3.5-5.1 [facility] Comment on above: Performed By: #### L 3300.3500, [id number], [id number] #### [facility] [address] [place], [address] Sodium [Moles/Vol] 139 mmol/L Normal 136-145 [facility] Comment on above: Performed By: #### L 3300.3500, [id number], [id number] #### [facility] [address] [place], [address] T PROT 7.9 g/dL Normal 6.4-8.2 [facility] Comment on above: Performed By: #### L 3300.3500, L500.4050, L501.9985 #### [facility] [address] [place], [address] Urea nitrogen [Mass/Vol] 20 mg/dL High 7-18 [facility] Comment on above: Performed By: #### L 3300.3500, L500.4050, L501.9985 #### [facility] [address] [place], [address] Hemoglobin A1con 03-10-2024 HbA1c (Bld) [Mass fraction] 6.2 % High 3.8-5.6 [facility] Comment on above: Result Comment: Norm al < 5.7 % Prediabetic 5.7 - 6.4 % Diabetic >or= 6.5 % Please note range changes. Performed By: #### L 3300.3500, L500.4050, L501.9985 #### [facility] [address] [place], [address] MR/BMS.IMBon 12-20-2023 MR/BMS.IMB [facility] [address] [facility] [facility] [address] [address] [place], [place] [address] OFFICE VISIT Date of Service: 12/20/23 MR#: [id number] Acct: [id number] Name: PUALO PIERRE Rep #: [id number] : 1990 Provider: Dr. El hernandez MD Age/Sex: 33/M Location: [facility] Status: Signed Intake Vital Signs 10/03/23 09:03 12/20/23 10:49 Height 5 ft 7 in 5 ft 7 in Weight: 243 lb 249 lb BMI 38.0 38.9 BP 113/73 120/81 H Blood Pressure Location Lt brachial Lt brachial Position Sitting Sitting Respiration 18 Pulse 70 84 Pulse Source Monitor Monitor Temp 98.6 F 98.6 F Temp Source Temporal Temporal Pulse Oximetry (%) 93 94 Oxygen Delivery Method room air room air Intake Visit Reasons: Results Chief Complaint: Follow-Up Liver Ultrasound Accompanied by: Caregiver Is patient in pain?: No Allergies No Known Allergies Allergy (Verified 12/20/23 10:47) Medications ???Medication ???Instructions ???Recorded ???Confirmed ???Type bismuth subsalicylate 262 mg/15 mL 524 mg (30 mL) PO Q30-60M PRN 08/16/22 12/20/23 Rx oral suspension (Pepto-Bismol) diarrhea #500 mL menthol 5.8 mg lozenges ([place] 5.8 mg mucous membrane TID-QID PRN 07/09/23 12/20/23 Rx Cough Drops) cough #30 ea acetaminophen 325 mg tablet 650 mg (2 x 325 mg) PO Q8H PRN 08/01/23 12/20/23 Rx pain #30 tabs omega-3 fatty acids 1,250 mg 3,750 mg PO DAILY 10/03/23 12/20/23 History capsule cholecalciferol (vitamin D3) 25 25 mcg PO DAILY #90 caps 11/29/23 12/20/23 Rx mcg (1,000 unit) capsule PFSH Medical History (Updated 12/20/23 @ 12:[address] El Valdes MD) Metabolic dysfunction-associated steatotic liver disease (MASLD) Elevated LFTs Opioid use disorder Asperger's disorder ADHD Vision problem Seizures Migraines Alcohol abuse Autism Surgical History [place] teeth extracted History of elbow surgery Family History Mother Alcoholism Father Alcoholism Grandmother Alcoholism Grandfather Arthritis Cancer Other Seizures Social History adopted: No household members: other details: halfway housing: house number of children: 0 current occupational status: employed and disabled current occupation: disability pets and animals: No leisure activities: music and other history of recent travel: No sexually active: No Smoking Status: Never smoker alcohol intake: former substance use type: opiates well-balanced diet: about half the time caffeine: Yes eating out: rarely or never during the past year weight has: remained stable what type of physical activity do you participate in: walking and yoga frequency: 1-2 times per week kandice/roman catholic: Atheist seatbelt use: sometimes do you feel safe at home: Yes HPI HPI Chief Complaint: Follow-Up Liver Ultrasound Details: PAULO PIERRE, is a 33 M who presents to the office today for post visit after ultrasound abdomen. His ultrasound confirms fatty liver. He has significant level of insulin resistance, borderline A1c, obesity. In essence, metabolic associated fatty liver disease. We spent considerable time discussing dietary nutritional patterns in this context once again. He was present today with his caregiver hydrochloric area supervisor at the halfway he is at. Generally speaking for the first 33 years of life, he was pretty much eating anything that he wanted to. That incorporated a lot of high fructose corn syrup beverages, pop, junk food, sweet snacks etc. He is at least eating better at the setting he is in. They really do not serve any significant prepared foods but mostly prepared in house. More fruits and vegetables than he had in the past, avoiding pop is much as possible, sugary beverages, and overall doing better that way. He seems interested and committed to doing better from that standpoint and is aware of the consequences of not addressing this through dietary measures at this point. We emphasized increasing his level of physical activity with walking which he is doing much better on but encouraged him to do a little bit more. Review of systems per chart. Physical exam. Vital signs on chart. No significant physical exam today as this was a visit to review ultrasound findings, and recent lab studies. ROS Const Constitutional: No body ache, chills, excessive sweating, fatigue, fever(s), frequent falls, headache(s), snoring, weakness, weight change, sleep problems or change in appetite Eyes Eyes: No blurry vision, change in vision, eye pain or Light sensitivity ENT ENT: No abnormal hearing, ear or mastoid pain, tinnitus, nasal congestion, headache(s), neck pain or sore throat Resp Respiratory: No cough, shortness of breat (more content not included)... Normal [facility] Liveron 12-11-2023 Liver [facility] [address] [place] [address] Liver MR#: [id number] Acct: [id number] Name: PAULO PIERRE Rep #: [id number] : 1990 M 33 From: Sinan Buchanan MD PCP: Dr. El Valdes MD Status: [facility] CLI Study: Liver Date of Exam: 12/11/23 Exam# [id number] Ordering Dr: El Valdes MD [id number] STUDY: ABDOMINAL ULTRASOUND - RIGHT UPPER QUADRANT REASON FOR VISIT: Male, 33 years old Elevated FTs TECHNIQUE: Ultrasound evaluation of the right upper quadrant was performed with real-time and static kerr-scale imaging. TECHNICAL QUALITY: Adequate. COMPARISON: None. FINDINGS: Liver: The liver measures 18.1 cm. There is increased echogenicity consistent with fatty infiltration. The bile ducts are within normal limits. There is hepatic color flow. The direction of portal flow is hepatopetal. There is no demonstrated mass lesion. Gallbladder: Normal distended gallbladder. The gallbladder wall measures 2 mm. There is a negative sonographic Kim''s sign. There is no pericholecystic fluid. There are no gallstones. Common Bile Duct (C.B.D.): The common bile duct measures 4 mm. Pancreas: There is nonvisualization of the pancreas.. Right Kidney: Normal size of the right kidney. The right kidney measures 12.4 cm. Normal renal cortex. The right cortex measures 1.6 cm. There is no demonstrated renal mass or cyst. There is no right hydronephrosis. US/Liver IMPRESSION: Fatty infiltration of the liver. Electronically Signed: Sinan Buchanan MD at 13:57 EDT , CC: Dr. El Valdes MD [employer] Associate: Signed Normal [facility] Insulin Levelon 11-28-2023 INSULIN,FASTING 40.8 uIU/mL High 2.6-24.9 [facility] Comment on above: Result Comment: Perf ormed at: [facility] [place] [id number] Specification Consultant: Uriel Roger PhD, Phone: [phone] Performed By: #### L 500.4050, L506.1000, L501.9985, L500.4100, L100.0100, L3300.3500 ####[facility] [address] [place], [place], [id number] CBC W/Diff, Automatedon 10-30-2023 Absolute Lymph 3.12 X10 3/uL Normal 0.83-4.51 [facility] Comment on above: Performed By: #### L 500.4050, L506.1000, L501.9985, L500.4100, L100.0100, L3300.3500 #### [facility] [address] [place], [place], [phone] (142) Absolute Neut 4.8 X10 3/uL Normal 2.0-7.7 [facility] Comment on above: Performed By: #### L 500.4050, L506.1000, L501.9985, L500.4100, L100.0100, L3300.3500 #### [facility] [address] [place], [place], [phone] (144) Basophils/100 WBC (Bld) 0.6 % Normal 0-1 [facility] Comment on above: Performed By: #### L 500.4050, L506.1000, L501.9985, L500.4100, L100.0100, L3300.3500 #### [facility] [address] [place], [address] Eosinophils/100 WBC (Bld) 1.0 % Normal 0-5 [facility] Comment on above: Performed By: #### L 500.4050, L506.1000, L501.9985, L500.4100, L100.0100, L3300.3500 #### [facility] [address] [place], [address] Erythrocyte distribution width (RBC) [Ratio] 12.7 % Normal 11.6-14.6 [facility] Comment on above: Performed By: #### L 500.4050, L506.1000, L501.9985, L500.4100, L100.0100, L3300.3500 #### [facility] [address] [place], [address] Hematocrit (Bld) [Volume fraction] 43.2 % Normal 40-54 [facility] Comment on above: Performed By: #### L 500.4050, L506.1000, L501.9985, L500.4100, L100.0100, L3300.3500 #### [facility] [address] [place], [address] Hemoglobin (Bld) [Mass/Vol] 14.2 g/dL Normal 13.0-16.5 [facility] Comment on above: Performed By: #### L 500.4050, L506.1000, L501.9985, L500.4100, L100.0100, L3300.3500 #### [facility] [address] [place], [address] IG% 0.300 Normal 0.0-0.9 [facility] Comment on above: Result Comment: IG% - Immature Granulocytes (promyelocytes, myelocytes and metamyelocytes) > 1% indicates that a LEFT SHIFT is Present. Performed By: #### L 500.4050, L506.1000, L501.9985, L500.4100, L100.0100, L3300.3500 #### [facility] [address] [place], [address] Lymphocytes/100 WBC (Bld) 35.1 % Normal 19-41 [facility] Comment on above: Performed By: #### L 500.4050, L506.1000, L501.9985, L500.4100, L100.0100, L3300.3500 #### [facility] [address] [place], [address] MCH (RBC) [Entitic mass] 27.9 pg Normal 27.0-32.0 [facility] Comment on above: Performed By: #### L 500.4050, L506.1000, L501.9985, L500.4100, L100.0100, L3300.3500 #### [facility] [address] [place], [address] MCHC (RBC) [Mass/Vol] 32.9 g/dL Normal 32-36 [facility] Comment on above: Performed By: #### L 500.4050, L506.1000, L501.9985, L500.4100, L100.0100, L3300.3500 #### [facility] [address] [place], [address] MCV (RBC) [Entitic vol] 84.9 fL Normal 80-94 [facility] Comment on above: Performed By: #### L 500.4050, L506.1000, L501.9985, L500.4100, L100.0100, L3300.3500 #### [facility] [address] [place], [address] Monocytes/100 WBC (Bld) 9.1 % Normal 0-10 [facility] Comment on above: Performed By: #### L 500.4050, L506.1000, L501.9985, L500.4100, L100.0100, L3300.3500 #### [facility] [address] [place] [place], [address] Neutrophils/100 WBC (Bld) 53.9 % Normal 47-70 [facility] Comment on above: Performed By: #### L 500.4050, L506.1000, L501.9985, L500.4100, L100.0100, L3300.3500 #### [facility] [address] [place], [address] Nucleated RBC (Bld) [#/Vol] 0 10*3/uL Normal 0-5 [facility] Comment on above: Performed By: #### L 500.4050, L506.1000, L501.9985, L500.4100, L100.0100, L3300.3500 #### [facility] [address] [place], [address] Platelet mean volume (Bld) [Entitic vol] 10.4 fL Normal 6.2-12.0 [facility] Comment on above: Performed By: #### L 500.4050, L506.1000, L501.9985, L500.4100, L100.0100, L3300.3500 #### [facility] [address] [place], [address] Platelets (Bld) [#/Vol] 277 10*3/uL Normal 150-450 [facility] Comment on above: Performed By: #### L 500.4050, L506.1000, L501.9985, L500.4100, L100.0100, L3300.3500 #### [facility] [address] [place], [address] RBC (Bld) [#/Vol] 5.09 10*6/uL Normal 4.6-6.2 [facility] Comment on above: Performed By: #### L 500.4050, L506.1000, L501.9985, L500.4100, L100.0100, L3300.3500 #### [facility] [address] [place], [address] RDW SD 39.4 fl Normal 35.1-43.9 [facility] Comment on above: Performed By: #### L 500.4050, L506.1000, L501.9985, L500.4100, L100.0100, L3300.3500 #### [facility] [address] [place], [address] WBC (Bld) [#/Vol] 8.9 10*3/uL Normal 4.4-11.0 [facility] Comment on above: Performed By: #### L 500.4050, L506.1000, L501.9985, L500.4100, L100.0100, L3300.3500 #### [facility] [address] [place], [address] Comprehensive Metabolic [facility] 11-27-2023 Albumin [Mass/Vol] 3.7 g/dL Normal 3.2-5.0 [facility] Comment on above: Performed By: #### L 500.4050, L506.1000, L501.9985, L500.4100, L100.0100, L3300.3500 #### [facility] [address] [place], [address] Albumin/Globulin [Mass ratio] 0.9 {ratio} Normal 0.9-2.4 [facility] Comment on above: Performed By: #### L 500.4050, L506.1000, L501.9985, L500.4100, L100.0100, L3300.3500 #### [facility] [address] [place], [address] ALK P 98 U/L Normal 45-117 [facility] Comment on above: Performed By: #### L 500.4050, L506.1000, L501.9985, L500.4100, L100.0100, L3300.3500 #### [facility] [address] [place], [address] ALT [Catalytic activity/Vol] 95 U/L High 16-61 [facility] Comment on above: Performed By: #### L 500.4050, L506.1000, L501.9985, L500.4100, L100.0100, L3300.3500 #### [facility] [address] [place], [address] AST [Catalytic activity/Vol] 40 U/L High 15-37 [facility] Comment on above: Performed By: #### L 500.4050, L506.1000, L501.9985, L500.4100, L100.0100, L3300.3500 #### [facility] [address] [place], [address] Bilirubin [Mass/Vol] 0.60 mg/dL Normal 0.20-1.00 [facility] Comment on above: Result Comment: For patients on eltrombopag therapy, use of Dimension Balm TBIL is not recommended. Performed By: #### L 500.4050, L506.1000, L501.9985, L500.4100, L100.0100, L3300.3500 #### [facility] [address] [place], [address] BUN/CRE 19.6 RATIO Normal 10-20 [facility] Comment on above: Performed By: #### L 500.4050, L506.1000, L501.9985, L500.4100, L100.0100, L3300.3500 #### [facility] [address] [place], [address] CA,Total 9.1 mg/dL Normal 8.5-10.1 [facility] Comment on above: Performed By: #### L 500.4050, L506.1000, L501.9985, L500.4100, L100.0100, L3300.3500 #### [facility] [address] [place], [address] Chloride [Moles/Vol] 107 mmol/L Normal 98-107 [facility] Comment on above: Performed By: #### L 500.4050, L506.1000, L501.9985, L500.4100, L100.0100, L3300.3500 #### [facility] [address] [place], [address] CO2 [Moles/Vol] 24.0 mmol/L Normal 21.0-32.0 [facility] Comment on above: Performed By: #### L 500.4050, L506.1000, L501.9985, L500.4100, L100.0100, L3300.3500 #### [facility] [address] [place], [address] Creatinine [Mass/Vol] 1.02 mg/dL Normal 0.70-1.30 [facility] Comment on above: Result Comment: The validity of the calculated GFR GFRAA in patients over 70 years has not been determined. Clinical correlation is essential. Performed By: #### L 500.4050, L506.1000, L501.9985, L500.4100, L100.0100, L3300.3500 #### [facility] [address] [place], [address] EST GFR - AA 107 mL/min Normal >60 [facility] Comment on above: Result Comment: Afri can [place]ian GFR Calc Performed By: #### L 500.4050, L506.1000, L501.9985, L500.4100, L100.0100, L3300.3500 #### [facility] [address] [place], [address] GAP 7 Normal 5-15 [facility] Comment on above: Performed By: #### L 500.4050, L506.1000, L501.9985, L500.4100, L100.0100, L3300.3500 #### [facility] [address] [place], [address] GFR/1.73 sq M.predicted among non-blacks MDRD (S/P/Bld) [Vol rate/Area] 88 mL/min/{1.73_m2} Normal >60 [facility] Comment on above: Result Comment: Non- GFR Calc Performed By: #### L 500.4050, L506.1000, L501.9985, L500.4100, L100.0100, L3300.3500 #### [facility] [address] [place], [address] Globulin (S) [Mass/Vol] 4.3 g/dL High 2.2-4.2 [facility] Comment on above: Performed By: #### L 500.4050, L506.1000, L501.9985, L500.4100, L100.0100, L3300.3500 #### [facility] [address] [place], [address] Glucose [Mass/Vol] 123 mg/dL High 74-106 [facility] Comment on above: Result Comment: Fast ing Glucose result from 100 to 125 mg/dL suggests IMPAIRED HOMEOSTASIS per A.D.A. criteria. Performed By: #### L 500.4050, L506.1000, L501.9985, L500.4100, L100.0100, L3300.3500 #### [facility] [address] [place], [address] Potassium [Moles/Vol] 3.9 mmol/L Normal 3.5-5.1 [facility] Comment on above: Performed By: #### L 500.4050, L506.1000, L501.9985, L500.4100, L100.0100, L3300.3500 #### [facility] [address] [place], [address] Sodium [Moles/Vol] 138 mmol/L Normal 136-145 [facility] Comment on above: Performed By: #### L 500.4050, L506.1000, L501.9985, L500.4100, L100.0100, L3300.3500 #### [facility] [address] [place], [address] T PROT 8.0 g/dL Normal 6.4-8.2 [facility] Comment on above: Performed By: #### L 500.4050, L506.1000, L501.9985, L500.4100, L100.0100, L3300.3500 #### [facility] [address] [place], [address] Urea nitrogen [Mass/Vol] 20 mg/dL High 7-18 [facility] Comment on above: Performed By: #### L 500.4050, L506.1000, L501.9985, L500.4100, L100.0100, L3300.3500 #### [facility] [address] [place], [address] Hemoglobin A1con 11-27-2023 HbA1c (Bld) [Mass fraction] 6.1 % High 3.8-5.6 [facility] Comment on above: Result Comment: Norm al < 5.7 % Prediabetic 5.7 - 6.4 % Diabetic >or= 6.5 % Please note range changes. Performed By: #### L 500.4050, L506.1000, L501.9985, L500.4100, L100.0100, L3300.3500 #### [facility] [address] [place], [address] Lipid Profileon 11-27-2023 Cholesterol [Mass/Vol] 253 mg/dL High 200 [facility] Comment on above: Result Comment: <200 mg/dL Desirable 200-240 mg/dL Borderline >240 mg/dL High Risk Performed By: #### L 500.4050, L506.1000, L501.9985, L500.4100, L100.0100, L3300.3500 ####[facility] [address] [place], [address] Cholesterol in HDL [Mass/Vol] 41 mg/dL Normal [facility] Comment on above: Result Comment: The drugs N-Acetylcysteine and Metamizole may falsely depress this assay. Reference Range HDL <40 mg/dL Low HDL Cholesterol HDL >or= 60 mg/dL High HDL Cholesterol Performed By: #### L 500.4050, L506.1000, L501.9985, L500.4100, L100.0100, L3300.3500 ####[facility] [address] [place], [address] Cholesterol in LDL [Mass/Vol] 182 mg/dL High 0-130 [facility] Comment on above: Performed By: #### L 500.4050, L506.1000, L501.9985, L500.4100, L100.0100, L3300.3500 ####[facility] [address] [place], [address] Cholesterol in VLDL [Mass/Vol] 30 mg/dL Normal 5-40 [facility] Comment on above: Performed By: #### L 500.4050, L506.1000, L501.9985, L500.4100, L100.0100, L3300.3500 ####[facility] [address] [place], [address] Triglyceride [Mass/Vol] 152 mg/dL Normal [facility] Comment on above: Result Comment: The drugs N-Acetylcysteine and Metamizole may falsely depress this assay. Serum Triglycerides Reference Interval Normal <150 mg/dL Borderline high 150 - 199 mg/dL High 200 - 499 mg/dL Very High > or = 500 mg/dL Performed By: #### L 500.4050, L506.1000, L501.9985, L500.4100, L100.0100, L3300.3500 ####[facility] [address] [place], [address] Vitamin D,25 Hydroxyon 11-26 Vitamin D 25-OH 25.5 ng/mL Normal [facility] Comment on above: Result Comment: Lia min D 25(OH) Status Range Deficiency <20 ng/mL (50nmol/L) Insufficiency 20 - 30 ng/mL (50 - 75 nmol/L) Sufficiency 30 - 100 ng/mL (75 - 250 nmol/L) Toxicity >100 ng/mL (>250 nmol/L) Performed By: #### L 500.4050, L506.1000, L501.9985, L500.4100, L100.0100, L3300.3500 ####[facility] [address] [place], [address] CNOVon 07-02-2023 CNOV Office Visit (UCWSTR ) -------- PAULO PIERRE ([id number]) 1990 M Date Time Provider Department 07/02/23 8:30 AM MAI MARTINEZ [facility] During your visit today, we recorded the following information about you: Temperature Pulse Respiration Blood pressure 100.9 degrees 86/minute 16/minute 124/80 Weight 107.5 kg Mai Martinez APRN.CNP 07/02/2023 9:09 AM Addendum ASSESSMENT/PLAN: 1. Sore throat - ICD9: 462, ICD10: J02.9 (primary diagnosis) - suspect viral - Group A strep molecular testing negative - Discussed supportive care treatment with fluids, rest and analgesia. 2. Flu-like symptoms - ICD9: 780.99, ICD10: R68.89 - INFLUENZA AANDB MOLECULAR (POC)-positive for influenza B. - COVID NAAT, UPPER RESPIRATORY, ROUTINE 3. Influenza B - ICD9: 487.1, ICD10: J10.1 - OSELTAMIVIR 75 MG CAPSULE - Follow-up with your PCP in 3-5 days if symptoms have not improved or sooner if symptoms worsen - Discussed red flags and need for immediate medical evaluation if any occur. - Discussed supportive care treatment with fluids, rest and analgesia. - Discussed expected course of illness Mai Martinez APRN.[facility] PATIENT INFO INFLUENZA INTRODUCTION Influenza (commonly called the flu) is a highly contagious illness that can occur in children or adults of any age. It occurs more often in the winter months because people spend more time in close contact with one another. The flu is spread easily from quztzo-ro-xxjzhp by coughing, sneezing, or touching surfaces. Every year, complications of the flu require more than 200,000 people in the [place] to be hospitalized. Serious illness is more likely in the very young, older adults, women, and people who have certain health problems such as asthma or other forms of lung disease. There have been several widespread flu outbreaks (called pandemics), which led to the deaths of many people worldwide. These outbreaks occurred when new strains of influenza viruses formed (often from pigs or birds) and humans became infected because they had no immunity to these viruses. FLU SYMPTOMS Symptoms of seasonal flu can vary from person to person, but usually include: Fever (temperature higher than 100?F or 37.8?C) Headache and muscle aches Fatigue Cough and sore throat may also be present People with the flu usually have a fever for two to five days. This is different than fever caused by other upper respiratory viruses, which usually resolve after 24 to 48 hours. Some people have cold-like symptoms (runny nose, sore throat) during the flu while others have fever and muscle aches. Flu symptoms usually improve over two to five days, although the illness may last for a week or more. Weakness and fatigue may persist for several weeks Flu complications -- Complications of influenza occur in some people; pneumonia is the most common complication. Pneumonia is a serious infection of the lungs, and is more likely to occur in people over the age of 65, people who live in termite control representative care facilities (nursing homes), and those with other illnesses such as diabetes or conditions affecting the heart or lungs. FLU DIAGNOSIS Influenza is usually diagnosed based on symptoms (fever, cough and muscle aches). Lab testing for influenza is performed in certain cases, such as during a new influenza outbreak in a community. FLU TREATMENT When to seek help -- Most people with the flu recover within one to two weeks without treatment. However, serious complications of the flu can occur. Call your doctor or nurse immediately if: You feel short of breath or have trouble breathing You have pain or pressure in your chest or stomach You have signs of being dehydrated, such as dizziness when standing or not passing urine You feel confused You cannot stop vomiting or you cannot drink enough fluids There are several groups of people who are at increased risk for flu complications. These include women, young children (<5 years of age, and especially <2 years of age), people ?65 years of age, and people with certain diseases such as chronic lung disease (such as asthma), heart disease, diabetes, immunosuppressing conditions (such as HIV infection or transplantation), and some other diseases. If you or your child has flu symptoms and is at increased risk of flu complications, you should call your healthcare provider. Treat symptoms -- Treating the symptoms of influenza can help you to feel better, but will not make the flu go away faster. Rest until the flu is fully resolved, especially if the illness has been severe Fluids -- Drink enough fluids so that you do not become dehydrated. One way to complaint clerk if you are drinking enough is to look at the color of your urine. Normally, urine should be light yellow to nearly colorless. If you are drinking (more content not included)... Normal [facility] INFLUENZA A&B MOLECULAR (POC )on 07-02-2023 Flu B (POCT) Positive Abnormal Negative [facility] Procedural Control Valid [facility] STREP A MOLECULAR (POC)on Procedural Control Valid [facility] Strep A (POCT) Negative Negative [facility] Basophil percentageOrdered B y: Dr. Valdes on 08-23-2022 Bilirubin [Mass/Vol] 0.90 mg/dL 0.20-1.00 [facility] Comment on above: For patients on eltr ombopag therapy, use of Dimension Balm TBIL is not recommended. Chloride [Moles/Vol] 106 mmol/L 98-107 [facility] Cholesterol [Mass/Vol] 240 mg/dL <200 [facility] Comment on above: <200 mg/dL Desirable 200-240 mg/dL Borderline >240 mg/dL High Risk Glucose [Mass/Vol] 101 mg/dL 74-106 [facility] Comment on above: Fasting Glucose resu lt from 100 to 125 mg/dL suggests IMPAIRED HOMEOSTASIS per A.D.A. criteria. Potassium [Moles/Vol] 3.8 mmol/L 3.5-5.1 [facility] Protein [Mass/Vol] 7.8 g/dL 6.4-8.2 [facility] Sodium [Moles/Vol] 137 mmol/L 136-145 [facility] Triglyceride [Mass/Vol] 198 mg/dL <199 [facility] Comment on above: The drugs N-Acetylcy steine and Metamizole may falsely depress this assay.Serum Triglycerides Reference Interval Normal <150 mg/dL Borderline high 150 - 199 mg/dL High 200 - 499 mg/dL Very High > or = 500 mg/dL Laboratory - Chemistry and C hemistry - challengeOrdered By: Dr. Valdes on 08-23-2022 ALP [Catalytic activity/Vol] 76 U/L 45-117 [facility] ALT [Catalytic activity/Vol] 39 U/L 16-61 [facility] CO2 [Moles/Vol] 28.0 mmol/L 21.0-32.0 [facility] Globulin (S) [Mass/Vol] 3.8 g/dL 2.2-4.2 [facility] Urea nitrogen/Creatinine [Mass ratio] 15.3 mg/mg 10-20 [facility] No Panel InformationOrdered By: Dr. Valdes on 08-23-2022 Estimated GFR (MDRD) Amer 97 mL/min >60 [facility] Comment on above: GFR Calc Estimated GFR (MDRD) Non-Af Amer 80 mL/min >60 [facility] Comment on above: Non- GFR Calc Thyroid Stimulating Hormone (TSH) 1.31 uIU/mL 0.358-3.74 [facility] Vitamin D 25-Hydroxy 27.2 ng/mL [facility] Comment on above: Vitamin D 25(OH) Sta tus Range Deficiency <20 ng/mL (50nmol/L) Insufficiency 20 - 30 ng/mL (50 - 75 nmol/L) Sufficiency 30 - 100 ng/mL (75 - 250 nmol/L) Toxicity >100 ng/mL (>250 nmol/L) Serum or plasma albumin juve urement (mass/volume)Ordered By: Dr. Valdes on 08-23-2022 Albumin [Mass/Vol] 4.0 g/dL 3.2-5.0 [facility] Serum or plasma albumin/glob ulin mass ratioOrdered By: Dr. Valdes on 08-23-2022 Albumin/Globulin [Mass ratio] 1.1 {ratio} 0.9-2.4 [facility] Serum or plasma calcium juve urement (mass/volume)Ordered By: Dr. Valdes on 08-23-2022 Calcium [Mass/Vol] 9.1 mg/dL 8.5-10.1 [facility] Serum or plasma cholesterol in HDL measurement (mass/volume)Ordered By: Dr. Valdes on 08-23-2022 Cholesterol in HDL [Mass/Vol] 42 mg/dL >40 [facility] Comment on above: The drugs N-Acetylcy steine and Metamizole may falsely depress this assay. Reference Range HDL <40 mg/dL Low HDL Cholesterol HDL >or= 60 mg/dL High HDL Cholesterol Serum or plasma cholesterol in VLDL measurement (mass/volume)Ordered By: Dr. Valdes on 08-23-2022 Cholesterol in VLDL [Mass/Vol] 40 mg/dL 5-40 [facility] Serum or plasma creatinine m easurement (mass/volume)Ordered By: Dr. Valdes on 08-23-2022 Creatinine [Mass/Vol] 1.11 mg/dL 0.70-1.30 [facility] Comment on above: The validity of the calculated GFR & GFRAA in patients over 70 years has not been determined. Clinical correlation is essential. Serum or plasma low density lipoprotein (LDL) cholesterol measurement (mass/volume)Ordered By: Dr. Valdes on 08-23-2022 Cholesterol in LDL [Mass/Vol] 158 mg/dL 0-130 [facility] Serum or plasma urea nitroge n measurement (mass/volume)Ordered By: Dr. Valdes on 08-23-2022 Urea nitrogen [Mass/Vol] 17 mg/dL 7-18 [facility] Thin prep Papanicolaou smear with manual screeningOrdered By: Dr. Valdes on 08-23-2022 Thin prep Papanicolaou smear with manual screening 22 U/L 15-37 [facility] Thin prep Papanicolaou smear with manual screening 3 5-15 [facility] Absolute lymphocyte counton 12-01-2021 Lymphocytes Auto (Unsp spec) [#/Vol] 2.69 10*3/uL 0.83-4.51 [facility] Work Phone: Basophil percentageon 2021 Basophils/100 WBC (Bld) 0.4 % 0-1 [facility] Work Phone: Bilirubin [Mass/Vol] 1.10 mg/dL 0.20-1.00 [facility] Work Phone: Comment on above: For patients on eltr ombopag therapy, use of Dimension Balm TBIL is not recommended. Chloride [Moles/Vol] 103 mmol/L 98-107 [facility] Work Phone: Eosinophils/100 WBC (Bld) 3.4 % 0-5 [facility] Work Phone: Glucose [Mass/Vol] 206 mg/dL 74-106 [facility] Work Phone: Comment on above: Glucose result great er than or equal to 200 mg/dLsuggests DIABETES MELLITUS per A.D.A. criteria. Neutrophils (Bld) [#/Vol] 6.0 10*3/uL 2.0-7.7 [facility] Work Phone: Neutrophils/100 WBC (Bld) 60.9 % 47-70 [facility] Work Phone: Potassium [Moles/Vol] 3.1 mmol/L 3.5-5.1 [facility] Work Phone: Protein [Mass/Vol] 7.3 g/dL 6.4-8.2 [facility] Work Phone: Sodium [Moles/Vol] 139 mmol/L 136-145 [facility] Work Phone: [phone] WBC (Bld) [#/Vol] 9.9 10*3/uL 4.4-11.0 [facility] Work Phone: Blood erythrocytes count (nu mber/volume)on 12-01-2021 RBC (Bld) [#/Vol] 4.49 10*6/uL 4.6-6.2 [facility] Work Phone: Blood hemoglobin measurement (mass/volume)on 12-01-2021 Hemoglobin (Bld) [Mass/Vol] 13.0 g/dL 13.0-16.5 [facility] Work Phone: Blood lymphocytes/100 leukoc yteson 12-01-2021 Lymphocytes/100 WBC (Bld) 27.2 % 19-41 [facility] Work Phone: [phone] Blood monocytes/100 leukocyt eson 12-01-2021 Monocytes/100 WBC (Bld) 7.8 % 0-10 [facility] Work Phone: [phone] Blood platelet mean volumeon 12-01-2021 Platelet mean volume (Bld) [Entitic vol] 10.2 fL 6.2-12.0 [facility] Work Phone: [phone] Determination of erythrocyte mean corpuscular volume (MCV)on 12-01-2021 MCV (RBC) [Entitic vol] 87.8 fL 80-94 [facility] Work Phone: [phone] Hematocrit Auto (Bld) [Volum e fraction]on 12-01-2021 Hematocrit (Bld) [Volume fraction] 39.4 % 40-54 [facility] Work Phone: [phone] Laboratory - Chemistry and C hemistry - challengeon 12-01-2021 ALP [Catalytic activity/Vol] 80 U/L 45-117 [facility] Work Phone: ALT [Catalytic activity/Vol] 28 U/L 16-61 [facility] Work Phone: [phone] CO2 [Moles/Vol] 28.0 mmol/L 21.0-32.0 [facility] Work Phone: [phone] Globulin (S) [Mass/Vol] 3.5 g/dL 2.2-4.2 [facility] Work Phone: [phone] Urea nitrogen/Creatinine [Mass ratio] 19.8 mg/mg 10-20 [facility] Work Phone: [phone] Laboratory - Drug toxicology on 12-01-2021 Amphetamines Ql (U) Positive <1000 ng/mL [facility] Work Phone: [phone] Benzodiazepines Ql (U) Negative < 200 ng/mL [facility] Work Phone: [phone] Cannabinoids Screen Ql (U) Negative < 50 ng/mL [facility] Work Phone: [phone] Cocaine Ql (U) Negative < 300 ng/mL [facility] Work Phone: [phone] Opiates Ql (U) Positive < 300 ng/mL [facility] Work Phone: [phone] Laboratory - Hematology and Cell countson 12-01-2021 Erythrocyte distribution width (RBC) [Entitic vol] 41.1 fL 35.1-43.9 [facility] Work Phone: [phone] Erythrocyte distribution width (RBC) [Ratio] 12.8 % 11.6-14.6 [facility] Work Phone: [phone] Immature granulocytes/100 WBC (Bld) 0.300 % 0.0-0.9 [facility] Work Phone: [phone] Comment on above: IG% - Immature Granu locytes (promyelocytes, myelocytes and metamyelocytes) > 1% indicates that a LEFT SHIFT is Present. MCH (RBC) [Entitic mass] 29.0 pg 27.0-32.0 [facility] Work Phone: [phone] Nucleated RBC/100 WBC (Bld) [Ratio] 0 % 0-5 [facility] Work Phone: [phone] MCHC Auto (RBC) [Mass/Vol]on 12-01-2021 MCHC (RBC) [Mass/Vol] 33.0 g/dL 32-36 [facility] Work Phone: No Panel Informationon 12-01 MDMA (Ecstasy) Screen Negative < 500 ng/mL [facility] Work Phone: [phone] Urine Barbiturates Screen Negative < 200 ng/mL [facility] Work Phone: [phone] Urine Drug Screen Comment [facility] Work Phone: [phone] Comment on above: CONFIRMATORY TESTING FOR ALL POSITIVE URINE DRUG SCREENRESULTS WILL ONLY BE SENT OUT UPON PHYSICIAN ORDER. VISTA Urine Drug Screen methods provide only preliminaryanalytical test results. A more specific alternate chemicalmethod must be used in order to obtain a confirmedanalytical result. Gas chromatography/mass spectrometery(GC/MS) is the preferred confirmatory method. Clinicalconsideration and professional judgement should be appliedto any drug of abuse test result, particularly whenpreliminary positive results are used. URINE TCA TESTING MUST BE ORDERED SEPARATELY. USE TESTMNEMONIC: [facility] Urine Methadone Screen Negative < 300 ng/mL [facility] Work Phone: Estimated Creatinine Clearance Calc 81.18 ml/min [facility] Work Phone: [phone] Estimated GFR (MDRD) Amer 89 mL/min >60 [facility] Work Phone: Comment on above: GFR Calc Estimated GFR (MDRD) Non-Af Amer 73 mL/min >60 [facility] Work Phone: [phone] Comment on above: Non- GFR Calc Ethyl Alcohol Level < 3.0 mg/dL [facility] Work Phone: [phone] Comment on above: The serum:whole bloo d ethanol ratio is approximately 1.14and varies slightly with hematocrit. Medical Alcohol reference interval and critical value innon-tolerant individuals; 50 - 100 Impairment 100 Intoxication 100 - 250 Severe Poisoning 250 - 400 Deep/possible fatal coma Platelets bldon 12-01-2021 Platelets (Bld) [#/Vol] 282 10*3/uL 150-450 [facility] Work Phone: Serum or plasma albumin juve urement (mass/volume)on 12-01-2021 Albumin [Mass/Vol] 3.8 g/dL 3.2-5.0 [facility] Work Phone: Serum or plasma albumin/glob ulin mass ratioon 12-01-2021 Albumin/Globulin [Mass ratio] 1.1 {ratio} 0.9-2.4 [facility] Work Phone: Serum or plasma calcium juve urement (mass/volume)on 12-01-2021 Calcium [Mass/Vol] 8.5 mg/dL 8.5-10.1 [facility] Work Phone: Serum or plasma creatinine m easurement (mass/volume)on 12-01-2021 Creatinine [Mass/Vol] 1.21 mg/dL 0.70-1.30 [facility] Work Phone: Comment on above: The validity of the calculated GFR & GFRAA in patients over 70 years has not been determined. Clinical correlation is essential. Serum or plasma urea nitroge n measurement (mass/volume)on 12-01-2021 Urea nitrogen [Mass/Vol] 24 mg/dL 7-18 [facility] Work Phone: Thin prep Papanicolaou smear with manual screeningon 12-01-2021 Thin prep Papanicolaou smear with manual screening 42 U/L 15-37 [facility] Work Phone: Thin prep Papanicolaou smear with manual screening 8 5-15 [facility] Work Phone: Urine phencyclidine (PCP) de tectionon 12-01-2021 Phencyclidine Ql (U) Negative < 25 ng/mL [facility] Work Phone: Vital Signs Date Time Vital Sign Value Performing Clinician Facility 10-15-2024 08:29-0400 Body height 170.[address] El Valdes MD Work Phone: [facility] 10-15-2024 08:29-0400 Body mass index (BMI) [Ratio] 40.1 kg/m2 Dr. El Valdes MD Work Phone: [facility] 10-15-2024 08:29-0400 Body temperature 98.2 [degF] Dr. El Valdes MD Work Phone: [facility] 10-15-2024 08:29-0400 Body weight 116.[address] El Valdes MD Work Phone: [facility] 10-15-2024 08:29-0400 Diastolic blood pressure 74 mm[Hg] Dr. El Valdes MD Work Phone: [facility] 10-15-2024 08:29-0400 Heart rate 79 /min Dr. El Valdes MD Work Phone: [facility] 10-15-2024 08:29-0400 Respiratory rate 16 /min Dr. El Valdes MD Work Phone: [facility] 10-15-2024 08:29-0400 SaO2% (BldA) [Mass fraction] 93 % Dr. El Valdes MD Work Phone: [facility] 10-15-2024 08:29-0400 Systolic blood pressure 106 mm[Hg] Dr. El Valdes MD Work Phone: [facility] 07-02-2023 08:29-0500 Body temperature 100.9 [degF] Mai Praisler-Wood CABLE REPAIRER.COMFORT ADVISOR Work Phone: [facility] 07-02-2023 08:29-0500 Body weight 107.5 kg Mai Praisler-Wood CABLE REPAIRER.COMFORT ADVISOR Work Phone: [facility] 07-02-2023 08:29-0500 Diastolic blood pressure 80 mm[Hg] Mai Praisler-Wood CABLE REPAIRER.COMFORT ADVISOR Work Phone: [facility] 07-02-2023 08:29-0500 Heart rate 86 /min Mai Praisler-Wood CABLE REPAIRER.COMFORT ADVISOR Work Phone: [facility] 07-02-2023 08:29-0500 Respiratory rate 16 /min Mai Martinez CABLE REPAIRER.COMFORT ADVISOR Work Phone: [facility] 07-02-2023 08:29-0500 SaO2% (BldA) [Mass fraction] 97 % Mai Martinez CABLE REPAIRER.COMFORT ADVISOR Work Phone: [facility] 07-02-2023 08:29-0500 Systolic blood pressure 124 mm[Hg] Mai Martinez CABLE REPAIRER.COMFORT ADVISOR Work Phone: [facility] 08-16-2022 09:17-0400 Body temperature 98.9 [degF] No Primary Care Physician [facility] 08-16-2022 09:17-0400 Body weight 91.85 kg No Primary Care Physician [facility] 08-16-2022 09:17-0400 Diastolic blood pressure 73 mm[Hg] No Primary Care Physician [facility] 08-16-2022 09:17-0400 Heart rate 71 /min No Primary Care Physician [facility] 08-16-2022 09:17-0400 Respiratory rate 16 /min No Primary Care Physician [facility] 08-16-2022 09:17-0400 SaO2% (BldA) [Mass fraction] 96 % No Primary Care Physician [facility] 08-16-2022 09:17-0400 Systolic blood pressure 113 mm[Hg] No Primary Care Physician [facility] 12-01-2021 16:40-0400 Diastolic blood pressure 74 mm[Hg] [facility] Work Phone: 12-01-2021 16:40-0400 Heart rate 72 /min [facility] Work Phone: 12-01-2021 16:40-0400 Respiratory rate 15 /min [facility] Work Phone: 12-01-2021 16:40-0400 SaO2% (BldA) [Mass fraction] 98 % [facility] Work Phone: 12-01-2021 16:40-0400 Systolic blood pressure 167 mm[Hg] [facility] Work Phone: 12-01-2021 14:010400 Body height 170.18 cm [facility] Work Phone: 12-01-2021 14:010400 Body mass index (BMI) [Ratio] 25.9 kg/m2 [facility] Work Phone: 12-01-2021 14:010400 Body temperature 98.4 [degF] [facility] Work Phone: 12-01-2021 14:01-0400 Body weight 75.3 kg [facility] Work Phone: Encounters Encounter Date Encounter Type Care Provider Facility Start: 10-15-2024 Encounter for genera l adult medical examination without abnormal findings El Valdes [facility] Start: 10-15-2024 End: 10-15-[address] lE Valdes MD -[facility] Work Phone: Start: 10-15-2024 End: 10-15-[address] El Valdes MD Work Phone: [facility] Work Phone: Start: 03-13-2024 End: 03-13-2024 ambulatory El Valdes Facility:[facility] Start: 03-10-2024 End: 03-10-2024 ambulatory El Valdes Facility:[facility] Start: 12-20-2023 End: 12-20-2023 ambulatory El Valdes Facility:[facility] Start: 12-11-2023 End: 12-11-2023 ambulatory El Valdes Facility:[facility] Start: 11-27-2023 End: 11-27-2023 ambulatory El Valdes Facility:[facility] Start: 07-02-2023 Telephone encounter Teri DANIEL Work Phone: [facility] Comment on above: Results Start: 07-02-2023 End: 07-02-2023 ambulatory EL VALDES Facility:[facility] Start: 07-02-2023 End: 07-02-2023 Patient encounter procedure Mai Martinez APRN.CNP Work Phone: [facility] Comment on above: Sore throat (Primary Dx); Flu-like symptoms; Influenza B Start: 08-23-2022 End: 08-23-2022 ambulatory No Primary Care Physician [facility] Work Phone: Start: 08-23-2022 End: 08-23-2022 Patient encounter procedure No Primary Care Physician [facility] Start: 08-16-2022 Patient encounter status No Primary Care Physician [facility] Start: 08-16-2022 End: 08-16-2022 Encounter for general adult medical examination without abnormal findings No Primary Care Physician [facility] Start: 08-16-2022 End: 08-16-2022 Patient encounter procedure No Primary Care Physician [facility] Start: 08-07-2022 Non-patient / Non-visit [facility] Care Physician [facility] Start: 12-01-2021 End: 12-01-2021 Emergency department patient visit [facility] Procedures Date Procedure Procedure Detail Performing Clinician Start: 07-02-2023 STREP A MOLECULAR (POC) [facility] Provider Start: 07-02-2023 INFLUENZA A&B MOLECU LAR (POC) Mai Martinez APRN.CNP Work Phone: Start: 12-01-2021 Plain chest X-ray Plan of Treatment Date Care Activity Detail Author Start: 04-30-2023 Depression Assessment Depression Assessment [facility] Start: 2023 Lipid panel Lipid Screening [facility] Start: 12-29-2022 Covid-19 Vaccine ( season) Covid-19 Vaccine ( season) [facility] Start: 12-29-2022 Influenza vaccination Influ[facility] Vaccine (#1) [facility] Start: 12-01-2021 [facility] Work Phone: Start: 12-01-2021 Referral to service [facility] Work Phone: Start: 2007 Hepatitis A Vaccine (1 of 2 - Risk 2-dose series) Hepatitis A Vaccine (1 of 2 - Risk 2-dose series) [facility] Start: 2006 Hepatitis C screening Hepatitis C Screening [facility] Start: 2006 HIV screening HIV Screening [facility] Start: 02-23-2004 Hepatitis B Vaccine (3 of 3 - 3-dose series) Hepatitis B Vaccine (3 of 3 - 3-dose series) [facility] Start: 1999 Urine microalbumin profile DTaP,Tdap,Td Vaccine (6 - Tdap) [facility] CBC W Auto Different ial panel - Blood [facility] Comprehensive metabo lic 1999 panel - Serum or Plasma [facility] Hemoglobin A1c/Hemoglobin.total in Blood [facility] Lipid 1995 panel - S david or Plasma [facility] Patient Education ED Opiate Abus e ED Overdose, Opiate [facility] Work Phone: Patient referral [facility] Work Phone: SARS-CoV-2 (COVID-19 ) RNA [Presence] in Respiratory specimen by WINSTON with probe detection COVID NAAT, UPPER RESPIRATORY, ROUTINE Microbiology Routine Flu-like symptoms 07/02/2023 8:56 AM EST [facility] Work Phone: Thyroid stimulating hormone measurement [facility] Vitamin D, 25-hydrox y measurement [facility] Immunizations Immunization Date Immunization Notes Care Provider Immanuel shetty 02-26-2007 influenza virus vacc ine, unspecified formulation Mai Martinez APRN.CNP Work Phone: [facility] Payers Date Payer Category Payer Self-pay [id number] 2023 Unknown [id number] 2023 Unknown [id number] 2023 Medicare UHC MEDICARE MYC ARE UHC MEDICARE [id number] 2023-Present [phone] [address] [place] [address] Medicare [id number] Unknown [id number] Unknown [id number] Unknown [id number] Unknown [id number] Unknown [id number] Unknown [id number] Social History Date Type Detail Facility Start: 12-01-2021 End: 08-16-2022 Tobacco smoking status MIIS Unknown if ever smoked [facility] Start: 1990 Sex Assigned At Male [facility] Start: 12-23-2010 End: 08-16-2022 Tobacco smoking status NHIS Never smoked tobacco [facility] Work Phone: Start: 12-23-2010 Tobacco use and exposure Smokeless tobacco non-user [facility] Work Phone: Start: 07-02-2023 Alcohol intake Current non-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 Note 07-02-2023 Telephone Encounter - Esme Mills LPN - 07/02/2023 7:40 PM ESTTelephone Encounter - Teri Washington PA - 07/02/2023 6:59 PM EST Note Date & Type Note Facility 07-02-2023 Miscellaneous Notes Formattin g of this note might be different from the original. Patient notified.Esme Mills LPN Negative for covid documented in this encounter [facility] Progress note 07-02-2023 Note Date & Type Note Facility 07-02-2023 Note HNO ID: [id number] Author: MAI MARTINEZ APRN.COMFORT ADVISOR Service: ? Author Type: Nurse Practitioner Type: Progress Notes Filed: 07/02/2023 09:18 Note Text: Subjective Cough Associated symptoms include headaches, sore throat and myalgias. Pertinent negatives include no ear pain. Paulo Pierre is a 33 year old male who presents with fever and cough and headaches and body aches. Symptoms started Sunday. He still has a fever today. He lives in a halfway, a mcat instructor from the facility is here with him. He took tylenol at home. Review of Systems Constitutional: Positive for fever. HENT: Positive for congestion and sore throat. Negative for ear pain. Respiratory: Positive for cough. Cardiovascular: Negative. Gastrointestinal: Negative for abdominal pain, diarrhea, nausea and vomiting. Musculoskeletal: Positive for myalgias. Skin: Negative. Neurological: Positive for headaches. 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 Stopped medication age 8-9 PAST SURGICAL HISTORY Procedure Laterality Date PAST SURGICAL HISTORY OF ORIF right elbow ALLERGIES Patient has no known allergies. MEDICATIONS aripiprazole (ABILIFY) 20 mg ORAL tablet Take 20 mg by mouth once daily. citalopram (CELEXA) 20 mg ORAL tablet Take 20 mg by mouth once daily. zolpidem (AMBIEN) 10 mg ORAL Tab Take by mouth at bedtime as needed. Ibuprofen 200 mg ORAL Cap Take by mouth. diphenhydrAMINE 25 mg ORAL tablet Take 25 mg by mouth every 6 hours as needed. atomoxetine (STRATTERA) 40 mg ORAL capsule Take 1 capsule by mouth once daily. oseltamivir (TAMIFLU) 75 mg capsule Take 1 capsule by mouth two times a day for 5 days. FAMILY HISTORY Problem Relation Age of Onset Alcohol/Drug Mother alcohol Alcohol/Drug Father alcohol None Sister Social History Tobacco Use Smoking status: Never Smokeless tobacco: Never Substance Use Topics Alcohol use: No Drug use: No Objective Physical Exam Vitals and nursing note reviewed. Constitutional: Appearance: Normal appearance. HENT: Right Ear: Tympanic membrane, ear canal and external ear normal. Left Ear: Tympanic membrane, ear canal and external ear normal. Nose: Nose normal. Mouth/Throat: Mouth: Mucous membranes are moist. Pharynx: Uvula midline. Posterior oropharyngeal erythema present. No oropharyngeal exudate. Cardiovascular: Rate and Rhythm: Normal rate and regular rhythm. Heart sounds: Normal heart sounds. Pulmonary: Effort: Pulmonary effort is normal. No respiratory distress. Breath sounds: Normal breath sounds. No wheezing or rales. Musculoskeletal: Cervical back: Neck supple. Lymphadenopathy: Cervical: No cervical adenopathy. Skin: General: Skin is warm and dry. Findings: No erythema or rash. Neurological: Mental Status: He is alert. ASSESSMENT/PLAN: 1. Sore throat - ICD9: 462, ICD10: J02.9 (primary diagnosis) - suspect viral - Group A strep molecular testing negative - Discussed supportive care treatment with fluids, rest and analgesia. 2. Flu-like symptoms - ICD9: 780.99, ICD10: R68.89 - INFLUENZA AANDB MOLECULAR (POC)-positive for influenza B. - COVID NAAT, UPPER RESPIRATORY, ROUTINE 3. Influenza B - ICD9: 487.1, ICD10: J10.1 - OSELTAMIVIR 75 MG CAPSULE - Follow-up with your PCP in 3-5 days if symptoms have not improved or sooner if symptoms worsen - Discussed red flags and need for immediate medical evaluation if any occur. - Discussed supportive care treatment with fluids, rest and analgesia. - Discussed expected course of illness Mai Martinez APRN.[facility] History of Present illness Narrative 07-02-2023 Mai Martinez APRN.[facility] - 07/02/2023 9:02 AM EST Note Date & Type Note Facility 07-02-2023 History of Presen t illness Narrative Subjective Cough Associated symptoms include headaches, sore throat and myalgias. Pertinent negatives include no ear pain. Paulo Pierre is a 33 year old male who presents with fever and cough and headaches and body aches. Symptoms started Sunday. He still has a fever today. He lives in a halfway, a mcat instructor from the facility is here with him. He took tylenol at home. Review of Systems Constitutional: Positive for fever. HENT: Positive for congestion and sore throat. Negative for ear pain. Respiratory: Positive for cough. Cardiovascular: Negative. Gastrointestinal: Negative for abdominal pain, diarrhea, nausea and vomiting. Musculoskeletal: Positive for myalgias. Skin: Negative. Neurological: Positive for headaches. 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 Stopped medication age 8-9 PAST SURGICAL HISTORY Procedure Laterality Date PAST SURGICAL HISTORY OF ORIF right elbow ALLERGIES Patient has no known allergies. MEDICATIONS aripiprazole (ABILIFY) 20 mg ORAL tablet Take 20 mg by mouth once daily. citalopram (CELEXA) 20 mg ORAL tablet Take 20 mg by mouth once daily. zolpidem (AMBIEN) 10 mg ORAL Tab Take by mouth at bedtime as needed. Ibuprofen 200 mg ORAL Cap Take by mouth. diphenhydrAMINE 25 mg ORAL tablet Take 25 mg by mouth every 6 hours as needed. atomoxetine (STRATTERA) 40 mg ORAL capsule Take 1 capsule by mouth once daily. oseltamivir (TAMIFLU) 75 mg capsule Take 1 capsule by mouth two times a day for 5 days. FAMILY HISTORY Problem Relation Age of Onset Alcohol/Drug Mother alcohol Alcohol/Drug Father alcohol None Sister Social History Tobacco Use Smoking status: Never Smokeless tobacco: Never Substance Use Topics Alcohol use: No Drug use: No Objective Physical Exam Vitals and nursing note reviewed. Constitutional: Appearance: Normal appearance. HENT: Right Ear: Tympanic membrane, ear canal and external ear normal. Left Ear: Tympanic membrane, ear canal and external ear normal. Nose: Nose normal. Mouth/Throat: Mouth: Mucous membranes are moist. Pharynx: Uvula midline. Posterior oropharyngeal erythema present. No oropharyngeal exudate. Cardiovascular: Rate and Rhythm: Normal rate and regular rhythm. Heart sounds: Normal heart sounds. Pulmonary: Effort: Pulmonary effort is normal. No respiratory distress. Breath sounds: Normal breath sounds. No wheezing or rales. Musculoskeletal: Cervical back: Neck supple. Lymphadenopathy: Cervical: No cervical adenopathy. Skin: General: Skin is warm and dry. Findings: No erythema or rash. Neurological: Mental Status: He is alert. ASSESSMENT/PLAN: 1. Sore throat - ICD9: 462, ICD10: J02.9 (primary diagnosis) - suspect viral - Group A strep molecular testing negative - Discussed supportive care treatment with fluids, rest and analgesia. 2. Flu-like symptoms - ICD9: 780.99, ICD10: R68.89 - INFLUENZA A&B MOLECULAR (POC)-positive for influenza B. - COVID NAAT, UPPER RESPIRATORY, ROUTINE 3. Influenza B - ICD9: 487.1, ICD10: J10.1 - OSELTAMIVIR 75 MG CAPSULE - Follow-up with your PCP in 3-5 days if symptoms have not improved or sooner if symptoms worsen - Discussed red flags and need for immediate medical evaluation if any occur. - Discussed supportive care treatment with fluids, rest and analgesia. - Discussed expected course of illness Mai Martinez APRN.[employer] ADVISOR documented in this encounter [facility] Instructions 07-02-2023 Patient Instructions Note Date & Type Note Facility 07-02-2023 Instructions Mai Martinez APRN.COMFORT ADVISOR - 07/02/2023 8:55 AM EST ASSESSMENT/PLAN: 1. Sore throat - ICD9: 462, ICD10: J02.9 (primary diagnosis) - suspect viral - Group A strep molecular testing negative - Discussed supportive care treatment with fluids, rest and analgesia. 2. Flu-like symptoms - ICD9: 780.99, ICD10: R68.89 - INFLUENZA A&B MOLECULAR (POC)-positive for influenza B. - COVID NAAT, UPPER RESPIRATORY, ROUTINE 3. Influenza B - ICD9: 487.1, ICD10: J10.1 - OSELTAMIVIR 75 MG CAPSULE - Follow-up with your PCP in 3-5 days if symptoms have not improved or sooner if symptoms worsen - Discussed red flags and need for immediate medical evaluation if any occur. - Discussed supportive care treatment with fluids, rest and analgesia. - Discussed expected course of illness Mai Martinez APRN.[facility] C[facility] PATIENT INFO INFLUENZA INTRODUCTION Influenza (commonly called the flu) is a highly contagious illness that can occur in children or adults of any age. It occurs more often in the winter months because people spend more time in close contact with one another. The flu is spread easily from [id number] by coughing, sneezing, or touching surfaces. Every year, complications of the flu require more than 200,000 people in the [place] to be hospitalized. Serious illness is more likely in the very young, older adults, women, and people who have certain health problems such as asthma or other forms of lung disease. There have been several widespread flu outbreaks (called pandemics), which led to the deaths of many people worldwide. These outbreaks occurred when new strains of influenza viruses formed (often from pigs or birds) and humans became infected because they had no immunity to these viruses. FLU SYMPTOMS Symptoms of seasonal flu can vary from person to person, but usually include: Fever (temperature higher than 100 F or 37.8 C) Headache and muscle aches Fatigue Cough and sore throat may also be present People with the flu usually have a fever for two to five days. This is different than fever caused by other upper respiratory viruses, which usually resolve after 24 to 48 hours. Some people have cold-like symptoms (runny nose, sore throat) during the flu while others have fever and muscle aches. Flu symptoms usually improve over two to five days, although the illness may last for a week or more. Weakness and fatigue may persist for several weeks Flu complications -- Complications of influenza occur in some people; pneumonia is the most common complication. Pneumonia is a serious infection of the lungs, and is more likely to occur in people over the age of 65, people who live in termite control representative care facilities (nursing homes), and those with other illnesses such as diabetes or conditions affecting the heart or lungs. FLU DIAGNOSIS Influenza is usually diagnosed based on symptoms (fever, cough and muscle aches). Lab testing for influenza is performed in certain cases, such as during a new influenza outbreak in a community. FLU TREATMENT When to seek help -- Most people with the flu recover within one to two weeks without treatment. However, serious complications of the flu can occur. Call your doctor or nurse immediately if: You feel short of breath or have trouble breathing You have pain or pressure in your chest or stomach You have signs of being dehydrated, such as dizziness when standing or not passing urine You feel confused You cannot stop vomiting or you cannot drink enough fluids There are several groups of people who are at increased risk for flu complications. These include women, young children (<5 years of age, and especially <2 years of age), people ?65 years of age, and people with certain diseases such as chronic lung disease (such as asthma), heart disease, diabetes, immunosuppressing conditions (such as HIV infection or transplantation), and some other diseases. If you or your child has flu symptoms and is at increased risk of flu complications, you should call your healthcare provider. Treat symptoms -- Treating the symptoms of influenza can help you to feel better, but will not make the flu go away faster. Rest until the flu is fully resolved, especially if the illness has been severe Fluids -- Drink enough fluids so that you do not become dehydrated. One way to complaint clerk if you are drinking enough is to look at the color of your urine. Normally, urine should be light yellow to nearly colorless. If you are drinking enough, you should pass urine every three to five hours. Acetaminophen (such as Tylenol and other brands) can relieve fever, headache, and muscle aches. Aspirin, and medicines that include aspirin (eg, bismuth subsalicylate; PeptoBismol), are not recommended for children under 18 because aspirin can lead to a serious disease called Ezequiel syndrome. Cough medicines are not usually helpful; cough usually resolves without treatment. We do not recommend cough or cold medicine for children under age six years. Antiviral treatment -- Antiviral medicines can be used to treat or prevent influenza. When used as a treatment, the medicine does not eliminate flu symptoms, although it can reduce the severity and duration of symptoms by about one day. Not every person with influenza needs an antiviral medicine; the decision is based upon your risk of developing complications of influenza. Antiviral treatment is most effective for seasonal influenza when it is taken within the first 48 hours of flu symptoms. Side effects -- Zanamivir and oseltamivir can cause mild side effects, including nausea and vomiting; zanamivir, which is inhaled, can cause difficulty breathing in some cases. Most people are able to continue the medicine despite the side effects. Antibiotics -- Antibiotics are NOT useful for treating viral illnesses such as influenza. Antibiotics should only used if there is a bacterial complication of the flu such as bacterial pneumonia, ear infection, or sinusitis. Antibiotics can cause side effects and lead to development of antibiotic resistance. documented in this encounter [facility] Evaluation note Note Date & Type Note Facility Evaluation note No assessment information availa [facility] Work Phone: Evaluation note Note Date & Type Note Facility Evaluation note Diagnosis Onset Date ADHD acute Asperger's disorder acute Encounter for wellness examination in adult acute Foreign body in left auditory canal acute [facility] Work Phone: Evaluation note Note Date & Type Note Facility Evaluation note Diagnosis Sore throat- Primary Acute pharyngitis Flu-like symptoms Other general symptoms Influenza B Influenza with other respiratory manifestations documented in this encounter [facility] Reason for referral (narrative) Note Date & Type Note Facility Reason for referral (narrative) No reason for referral information available 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 December 01 2:05pm Family History No Family History Records Found Relationship Condition Age at Onset Recorded Date/T mariano Not Specified Seizure Unknown mother Alcoholism Unknown father Alcoholism Unknown grandmother Alcoholism Unknown grandfather Arthritis Unknown Malignant neoplasm Unknown Summary Purpose Additional Source Comments Goals (unrecognized section and content) Goals may be documented in a n alternate sectionGoals may be documented in an alternate sectionGoals may be documented in an alternate section Care Teams (unrecognized sec tion and content) Team Status: Active Member Role Status Dates No Primary Care Physician Family Provider Active Dr. El Valdes MD Primary Care Provider Active Team Status: Inactive Member Role Status Dates No Primary Care Physician Primary Care Provider Active Dr. El Valdes MD Attending Provider Active Team Status: Active Member Role Status Dates No Primary Care Physician Primary Care Provider Active Delbert Marrero Attending Provider Active Team Status: Inactive Member Role Status Dates Dr. El Valdes MD Primary Care Pro vider, Attending Provider, Referring Provider Active Supervisor [employer] Relationship Specialty Start Date End Date El Valdes MD [address] [facility] [address] [place] [address] PCP - General Internal Medicine 07/02/23 Supervisor [employer] Relationship Specialty Start Date End Date El Valdes MD [address] [facility] [address] [place] [address] PCP - General Internal Medicine 07/02/23 Team Status: Inactive Member Role Status Dates Dr. El Valdes MD Primary Care Provider Active Start: October 15, 2024 End: October 15, 2024 Dr. El Valdes MD Attending Provider Active Start: October 15, 2024 End: October 15, 2024 Source Comments (unrecognize d section and content) In the event this informatio n is protected by the Federal Confidentiality of Alcohol and Drug Abuse Patient Records regulations: The Federal rules restrict any use of the information to criminally investigate or prosecute any alcohol or drug abuse patient.[facility] the event this information is protected by the Federal Confidentiality of Alcohol and Drug Abuse Patient Records regulations: The Federal rules restrict any use of the information to criminally investigate or prosecute any alcohol or drug abuse patient.[facility] Reason for Visit (unrecogniz ed section and content) Reason Comments Cough fever x 1 day Reason Comments Results (unrecognized sect ion and content) No Status Records FoundNo Status Records Found INFORMATION SOURCE (unrecogn ized section and content) DATE CREATED AUTHOR 07/02/2023 [facility] DATE CREATED AUTHOR AUTHOR'S ORGANIZ ATION 10/17/2024 [facility] FOR RECORDS PERTAINING TO PATIENTS WHO ARE OR HAVE BEEN ENROLLED IN A CHEMICAL DEPENDENCY/SUBSTANCEABUSE PROGRAM, SOME INFORMATION MAY BE OMITTED. This clinical summary was aggregated from multiple sources. Caution should be exercised in using it in the provision of clinical care. This summary normalizes information from multiple sources, and as a consequence, information in this document may materially change the coding, format and clinical context of patient data. In addition, data may be omitted in some cases. CLINICAL DECISIONS SHOULD BE BASED ON THE PRIMARY CLINICAL RECORDS. [employer] [facility]. provides no warranty or guarantee of the accuracy or completeness of information in this document.
[2024-11-19 10:28] LABS: Hematocrit 43.1 % (40-54); Hemoglobin 14.5 g/dL (13.0-16.5); Immature Granulocytes Count 0.010 X10^3/uL (0.0-0.0); Mean Corp Hgb Conc 33.6 g/dL (32-36); Mean Corpuscular Volume 85.2 fL (80-94); Mean Platelet Vol. 10.4 fl (6.2-12.0); NRBC Flagged by Analyzer 0 % (0-5); Platelet Count 276 K/mm3 (150-450); RBC Distribution Width CV 12.6 % (11.6-14.6); RBC Distribution Width SD 38.5 fl (35.1-43.9); Red Blood Count 5.06 M/mm3 (4.6-6.2); White Blood Count 7.0 K/mm3 (4.4-11.0)
[2024-11-19 11:28] LABS: AST(SGOT) 43 U/L (<=37); Alanine Aminotransfer ALT/SGPT 98 U/L (<=46); Albumin, Serum 4.3 g/dL (3.5-5.0); Alkaline Phosphatase 88 U/L (40-129); Anion Gap 13 (5-15); BUN 17 mg/dL (4-19); BUN/Creat Ratio 16.4 RATIO (10-20); Calcium,Total 9.5 mg/dL (7.6-11.0); Carbon Dioxide 21.8 mmol/L (21.0-32.0); Chloride 103 mmol/L (98-108); Cholesterol 240 mg/dL (<=200); Globulin 3.1 g/dL (2.2-4.2); Glucose 142 mg/dL (70-99); Low Density Lipoprotein Calc. 170 mg/dL; Potassium 4.2 mmol/L (3.3-5.1); Triglycerides 169 mg/dL; Very Low Density Lipoprotein 34 mg/dL (5-40); Vitamin D,25 Hydroxy 28.8 ng/mL (30-100); cholesterol:hdl ratio screen 6.67
== END | disposition home or self-care (01) ==
PROVIDERS: PCP Internal Medicine; Referring Provider Internal Medicine; Visit Provider Internal Medicine
DX: Z00.00 Encounter for general adult medical examination without abnormal findings (principal); E88.819 Insulin resistance, unspecified; F84.5 Asperger's syndrome; K76.0 Fatty (change of) liver, not elsewhere classified; Z13.220 Encounter for screening for lipoid disorders; E55.9 Vitamin D deficiency, unspecified; R73.9 Hyperglycemia, unspecified; E03.9 Hypothyroidism, unspecified
CPT/HCPCS: 36415; 80053; 80061; 82306; 83036; 84443; 85025

== ENCOUNTER → 2025-03-11 | Outpatient (CLI) | payer MEDICARE, MEDICAID, SELFPAY ==
[2025-03-11 08:46] LABS: BUN 14 mg/dL (4-19); Glucose 116 mg/dL (70-99)
[2025-03-11 08:47] LABS: AST(SGOT) 39 U/L (<=37); Alanine Aminotransfer ALT/SGPT 69 U/L (<=46); Albumin, Serum 4.6 g/dL (3.5-5.0); Alkaline Phosphatase 83 U/L (40-129); Anion Gap 10 (5-15); BUN/Creat Ratio 13.7 RATIO (10-20); Calcium,Total 9.8 mg/dL (7.6-11.0); Carbon Dioxide 25.0 mmol/L (21.0-32.0); Chloride 103 mmol/L (98-108); Cholesterol 254 mg/dL (<=200); Globulin 3.0 g/dL (2.2-4.2); Low Density Lipoprotein Calc. 189 mg/dL; Potassium 4.5 mmol/L (3.3-5.1); Triglycerides 159 mg/dL; Very Low Density Lipoprotein 32 mg/dL (5-40); cholesterol:hdl ratio screen 7.15
== END | disposition home or self-care (01) ==
LOC: LAB 07:30
PROVIDERS: PCP Internal Medicine; Referring Provider Internal Medicine; Visit Provider Internal Medicine
DX: E88.819 Insulin resistance, unspecified (principal); K76.0 Fatty (change of) liver, not elsewhere classified; R73.9 Hyperglycemia, unspecified; Z13.220 Encounter for screening for lipoid disorders
CPT/HCPCS: 36415; 80053; 80061; 83036